=== PATIENT | male | born 1945 | race Caucasian/White ===

== ENCOUNTER 2023-11-21 14:13 | Inpatient (IN) | payer MEDICARE, SELFPAY ==
--- NOTE | ~2023-11-21 | US_ITS ---
EXAMINATION: ARTERIAL DUPLEX, LEFT LEG CLINICAL INFORMATION: Necrotic left great toe wound. COMPARISON: None available. TECHNIQUE: Duplex Doppler techniques with waveform analysis and measurement of velocities in the common femoral, profunda femoris, superficial femoral, popliteal and tibial arteries were performed. FINDINGS: LEFT LOWER EXTREMITY DUPLEX ULTRASOUND: Findings suggest the presence of a synthetic femoral-femoral bypass graft, which appears occluded. Common femoral artery: 20 cm/s. Monophasic. Profunda femoris artery: 26 cm/s. Monophasic. Superficial femoral artery (proximal): No flow visualized. Superficial femoral artery (mid): No flow visualized. Superficial femoral artery (distal): No flow visualized. Popliteal artery: 29 cm/s. Monophasic Posterior tibial artery: 20 cm/s. Monophasic Peroneal artery: 35 cm/s. Monophasic. Dorsalis pedis artery: 20 cm/s. Monophasic. 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 Given monophasic flow within the left common femoral artery, more proximal disease is suspected as well. Electronically signed by: Marcos Vidal MD 11/21/2023 07:44 PM EDT
--- NOTE | ~2023-11-21 | XR_ITS ---
EXAMINATION: XR FOOT, LEFT CLINICAL INFORMATION: Left foot wound, pain and deformity COMPARISON: None available. TECHNIQUE: AP, lateral, and oblique views of the left foot. FINDINGS: Soft tissue ulceration overlying the first toe with osseous destructive changes at the distal tuft of the first distal phalanx. Marked dorsal soft tissue swelling seen of the mid foot. Remaining osseous structures appear intact. XR/XR foot LT min 3V IMPRESSION: Soft tissue ulceration overlying the first toe with osseous destructive changes of the distal tuft of the first distal phalanx consistent with osteomyelitis. Electronically signed by: Aren Tijerina MD 11/21/2023 04:58 PM EDT
--- NOTE | ~2023-11-21 | CT_ITS ---
EXAMINATION: CT ANGIOGRAPHY LEGS WITH RUNOFF CLINICAL INFORMATION: Prior femorofemoral bypass 05/18/2008 which may be occluded. COMPARISON: Arterial ultrasound 11/22/2023. Venous ultrasonography 11/16/2023. TECHNIQUE: IV contrast and CT angiography of the abdomen, pelvis and lower extremities multiple 3-D angiographic reformatted images processed on the technologist work station under concurrent supervision. This CT examination was performed using dose optimization techniques as appropriate, variously including the following: *Automated exposure control *Adjustment of mA and/or kV according to patient size (this includes techniques or standardized protocols for targeted exams where dose is matched to indication/reason for exam; i.e. extremities or head) *Use of iterative reconstruction technique DLP: 1866 mGy-cm Intravenous contrast: Omnipaque 350 100 mL Findings: Vascular: Nonocclusive ostial calcifications are associated with the origin of the celiac axis. Moderate focal stenosis of the origin of the superior mesenteric artery is noted. High-grade focal stenosis is present within the superior mesenteric artery approximately 4 cm distal to the origin of the artery. Scattered calcific plaques are present within the superior mesenteric artery. Single bilateral patent renal arteries are noted with nonocclusive ostial calcifications. Bilaterally symmetric nephrographic enhancement identified. No intraluminal opacification is noted in the infrarenal abdominal aorta. Flow reconstitutes within the leftward external iliac arteries at the level of the left and right inferior epigastric arteries. A femorofemoral bypass graft demonstrates no intraluminal opacification. Right lower extremity: No intraluminal opacification is noted within the right femoral artery. Diminutive intraluminal opacification is noted in the distal popliteal artery with diminutive intraluminal opacification noted within the anterior tibialis, posterior tibialis and fibular arteries. Diminutive three-vessel flow crosses the ankle. Left lower extremity: No intraluminal opacification is noted within the left femoral artery. High-grade segmental stenosis of the superficial femoral arteries noted. Diminutive reconstitution of flow is noted in the distal popliteal artery with diminutive flow noted within the posterior tibialis, anterior tibialis and fibular artery with 3 diminutive three-vessel flow crossing the ankle. CT abdomen and pelvis nonvascular findings: Vague hyperdensity is present within the gallbladder lumen suspicious for cholelithiasis. The liver is not fully included in the image field of view. Normal appearance of the pancreas. The spleen appears atrophic. Normal appearance of the adrenal glands. Bilaterally symmetric nephrographic enhancement. No hydronephrosis, urolithiasis, perinephric inflammatory changes or suspicious parenchymal lesions of the kidneys. Moderate sigmoid diverticulosis is identified. Small cecal bascule is noted. The appendix is not visualized. No free intraperitoneal fluid or gas collections. No intestinal dilatation or mural thickening noted. Moderate fluid distention of the stomach. The stomach is not fully included in the imaged field of view. Subcutaneous emphysema is noted in left lower anterior abdominal wall likely related to subcutaneous injection. No suspicious osseous lesions noted. Lower extremity nonvascular findings: No popliteal fossa fluid collections. Bilateral tibiofibular subcutaneous edema with findings most pronounced on the left. CT/CT angio abd aorta runoff IMPRESSION: Vascular: *Occluded infrarenal abdominal aorta. Occluded iliac system except for reconstitution of the external iliac arteries at the origin of the left and right inferior epigastric arteries. Occluded femorofemoral bypass graft. *Bilateral occlusion of the femoral arteries. Bilateral reconstitution of flow within the distal popliteal arteries with bilateral diminutive 3-vessel flow crossing the ankles. *Marked diffuse calcific atherosclerosis is detailed further above. Findings include focal high-grade stenosis within the proximal superior mesenteric artery. Nonvascular: *Cholelithiasis. *Bilateral lower extremity subcutaneous edema most pronounced on the left. This critical result was discussed with Dr. Nii FERNANDO by telephone at 11/22/2023 11:34 PM EST and it was ascertained that the content and urgency of the report was understood at the time of direct communication. Electronically signed by: Carlos Donald MD 11/22/2023 11:35 PM EDT
--- NOTE | ~2023-11-21 | US_ITS ---
EXAMINATION: US TRIPLEX LOWER EXTREMITY, LEFT CLINICAL INFORMATION: Swelling, erythema COMPARISON: None available. TECHNIQUE: Color-flow triplex imaging with spectral analysis and compression Doppler were performed on the left lower extremity. FINDINGS: Respiratory variation, normal compression and augmented flow are noted throughout the left lower extremity. The visualized common femoral vein, superficial femoral vein, profunda femoral vein, popliteal vein and midcalf peroneal and posterior tibial venous segments show no evidence of deep venous thrombosis. There is no Ross's cyst. US/US venous duplex LE LT IMPRESSION: No evidence of deep venous thrombosis involving the left lower extremity. Electronically signed by: Wai Collado MD 11/21/2023 07:03 PM EDT
--- NOTE | ~2023-11-21 | XR_ITS ---
EXAMINATION: XR FOOT, RIGHT CLINICAL INFORMATION: Right foot redness and swelling COMPARISON: None available. TECHNIQUE: AP, lateral, and oblique views of the right foot. FINDINGS: Marked generalized soft tissue swelling and edema seen. Osseous structures are intact without acute fractures or destructive changes XR/XR foot RT min 3V IMPRESSION: Marked soft tissue swelling. No acute osseous process. Electronically signed by: Aren Tijerina MD 11/21/2023 04:58 PM EDT RP
--- NOTE | ~2023-11-21 | US_ITS ---
EXAMINATION: US NONINVASIVE ASSESSMENT OF THE RIGHT LOWER EXTREMITY WITH ARTERIAL DUPLEX AND ANKLE BRACHIAL INDICES (ABIS) CLINICAL INFORMATION: Clinical right lower extremity. Unable to palpate pedal pulse. COMPARISON: Ultrasound 11/21/2023 TECHNIQUE: Duplex Doppler techniques with waveform analysis and measurement of velocities in the common femoral, profunda femoris, superficial femoral, popliteal and tibial arteries were performed. The study was performed only at rest. FINDINGS: NONINVASIVE ASSESSMENT OF THE ARTERIES OF RIGHT LOWER EXTREMITY: On ultrasound 11/21/2023 there is a femoral-femoral bypass graft which is occluded. RIGHT LOWER EXTREMITY DUPLEX ULTRASOUND: Common femoral artery: 64.8 cm/s. Diastolic flow reversal: Absent More distally within the common femoral artery peak systolic velocity is 18.5 cm/s Profunda femoris artery: 64.7 cm/s. Diastolic flow reversal: Absent The superficial femoral artery and popliteal arteries are occluded. Mid to distal Posterior tibial artery: 3.8-5.2 cm/s Diastolic flow reversal: Absent Peroneal artery: 5.5-10.5 cm/s Diastolic flow reversal: Absent Anterior tibial artery 11 cm/s Diastolic flow reversal: Absent Dorsalis pedis artery: 4 cm/s Diastolic dorsal: Absent US/US arterial duplex LE RT IMPRESSION: There is occlusion of the femoral-femoral bypass and occlusion of the superficial femoral and popliteal arteries with minimal Doppler signal in the runoff vessels There is monophasic flow within the common femoral and profunda femoris arteries which may suggest inflow disease. Findings communicated with LORI Evangelista by Dr. Chirinos by telephone at 1227 hours. Electronically signed by: Marquez Chirinos MD 11/22/2023 12:34 PM EDT
--- NOTE | 2023-11-21 14:19 | ED.SKABFB ---
HPI - Skin/Abscess/Foreign Bdy General Chief complaint: General Medical Stated complaint: infection both feet Time Seen by Provider: 11/21/23 15:26 Source: patient and family Mode of arrival: ambulatory Limitations: no limitations History of Present Illness ED Provider: Dr. Sachin Kimbrough HPI narrative: 78-year-old male history of hypertension but not on medications who presents emergency department for evaluation of swelling and redness of his lower extremities which are chronic but have become worse over the last month and a fall at home son insisted that he come to the hospital to be seen. Patient states that he has been having difficulty walking secondary to the swelling in his legs and over the last month he was only been able to walk about 10 feet in his home. He states that the swelling and redness has been there for a long time but got worse over the last week. He states that the cat scratched his left great toe and part of his toe fell off over the last week. Today he states he lost his balance and fell. He states that he may have hit his head but he had no loss of consciousness. Since the fall he has had no headache, nausea, vomiting or neck pain. He denied fever, chills, chest pain, shortness of breath, diarrhea, dark stools or bloody stools. Related Data Allergies Allergy/AdvReac Type Severity Reaction Status Date / Time No Known Allergies Allergy Mild NONE Verified 11/21/23 14:26 Review of Systems Review of Systems: Yes all other systems are reviewed and are negative [facility] Past Medical History [facility] Narrative: Social history: He lives at home with his son, Ernesto Lieberman who can be reached at . Patient's smokes 1 pack of cigarettes per day times 50 years. He denies alcohol and drug use. He states he was not seen a doctor in many years. Social History Social History Smoked in Last 30 Days: Yes Use of substances other than those prescribed or required for medical reasons: No Advance Directives: No Advance Directives Information Provided: Yes Do you have a plan to hurt others: No Plan Physical Exam Vital Signs: Vital Signs: Last Vital Signs Temp 97.4 F 11/21/23 14:20 Pulse 110 H 11/21/23 15:09 Resp 16 11/21/23 15:09 BP 127/79 11/21/23 14:20 Pulse Ox 96 11/21/23 14:20 O2 Del Method Room Air 11/21/23 14:20 BMI result Body Mass Index 27.2 Vital signs revealed an elevated pulse of 110. Exam: General: Awake, alert in no distress, pleasant and cooperative Head: Normocephalic, atraumatic, no scalp hematomas EENT: PERRL, Lids normal, sclera normal, conjunctiva normal, nose normal , ears normal, throat without erythema or exudates Neck: Supple, no adenopath, no cervical spine tenderness Lung: breath sounds symmetric, no wheezing, rales or rhonchi Chest: symmetric movement, nontender Heart: regular rate and rhythm, normal S1, S2 no murmurs or rubs Abdomen: soft, non-tender, nondistended, normal bowel sounds Back: no vertebral tenderness, no CVAT Extremities: Patient has trace to 1+ pitting edema of his feet ankles and calves which are bilaterally symmetric, there is erythema of the calves extending down to the feet with significant swelling his feet . Patient has a purulent appearing discharge over his left foot with a necrotic appearing left great toe. Neuro: Awake, alert, oriented, normal speech, cranial nerves intact, moves all extremities symmetrically Course Course Course Narrative: This is an RME performed by Yessi Azevedo CNP: Additional HPI, ROS, PE not included below will be deferred to primary provider. Patient is a 78-year-old male who presents emergency department for evaluation concern for infection to the bilateral feet. Per patient's son this has been ongoing for the past 5-6 months patient has declined evaluation . Hasnt seen a doctor in about 4-5 years. Reports no pmhx. Exam: Unkempt, bilateral lower extremity swelling, erythema, wounds. Tachycardic Plan: Serum labs including blood cultures, XR Medications Administered Discontinued Medications Generic Name Dose Route Start Last Admin Trade Name Freq PRN Reason Stop Dose Admin Furosemide 40 mg 11/21/23 15:56 11/21/23 16:14 Furosemide 40 Mg/4 Ml Vial IVPUSH 11/21/23 15:57 40 mg ONCE ONE Administration Protocol Piperacillin Sod/Tazobactam 100 mls @ 200 mls/hr 11/21/23 15:56 11/21/23 16:15 Sod 4.5 gm/ Sodium Chloride IV 11/21/23 16:25 200 mls/hr ONCE ONE Administration Medical Decision Making Medical Decision Making [facility] Narrative: 78-year-old male history of hypertension but not on medications who presents emergency department for evaluation of swelling and redness of his lower extremities which are chronic but have become worse over the last month and a fall at home today after which has son insisted that he come to the hospital to be seen. Patient states that he has been having difficulty walking secondary to the swelling in his legs and over the last month. He was only been able to walk about 10 feet in his home. Son states that he has chronic redness and swelling of his legs but this is worse over the last week and the patient's left great toe has become black and necrotic. He also has developed a purulent discharge from the left foot. Vital signs did reveal elevated heart rate otherwise unremarkable. Physical examination is concerning for bilateral cellulitis of the lower extremities worse on the left foot compared to the right foot with a necrotic left great toe. 16:14 Differential diagnosis: ?Includes but is not limited to cellulitis, osteomyelitis, necrotic left great toe, peripheral edema, anemia, electrolyte abnormalities Course: 16:14 My interpretation patient's laboratory evaluation is as follows: [place] [address]. Glucose elevated 140 7. Lactic acid elevated 2.5. BNP elevated 254. The x-rays of the left and right foot were interpreted by me as follows: Osteomyelitis of the left great toe and possible osteomyelitis of the left 5th toe. Right foot revealed no signs of osteomyelitis Patient was treated with vancomycin 2 g IV and Zosyn 4.5 g IV. Given his significant peripheral edema felt that he would also benefit from Lasix 40 mg IV. The patient's elevated lactic acid is more likely caused by the necrosis of the left great toe and not secondary to sepsis. Admission/Observation Consideration of admission/observation: Escalation of care including admission/observation considered (Yes) Consult Healthcare Provider Management of the patient was discussed with: Hospitalist (Dr. Reynoso) Lab Data [facility] Lab Attestation statement: I reviewed the patient's lab results. 11/21/23 14:41 11/21/23 14:41 Labs: Lab Results 11/21/23 Range/Units 14:41 WBC 13.2 H (4.8-10.8) X10*3/uL RBC 4.68 (4.60-5.80) X10*6/uL Hgb 14.3 (14.0-18.0) g/dl Hct 42.3 (42.0-52.0) % MCV 90.4 (80.0-98.0) fL MCH 30.6 (27.0-33.0) pg MCHC 33.8 (31.0-36.0) g/dl RDW 14.4 (11.0-16.0) % Plt Count 258 (160-400) X10*3/uL MPV 9.0 L (9.4-12.4) fL Immature Gran % (Auto) 0.3 (0.0-0.4) % Neut % (Auto) 87.6 H (45-73) % Lymph % (Auto) 6.1 L (20-40) % [place] % (Auto) 5.4 (2-11) % Eos % (Auto) 0.4 (0-4) % Baso % (Auto) 0.2 (0-2) % Lymph # (Auto) 0.8 L (1.2-4.9) X10*3/uL [place] # (Auto) 0.7 (0.1-1.2) X10*3/uL Eos # (Auto) 0.1 (0.0-0.4) X10*3/uL Baso # (Auto) 0.0 (0.0-0.2) X10*3/uL Abs Immat Gran (auto) 0.04 H (0.00-0.03) X10*3/uL Absolute Neuts (auto) 11.6 H (2.0-8.3) x10*3/uL Absolute Nucleated RBC 0.000 (0.0-0.012) X10*3/uL Nucleated RBC % (auto) 0.0 (0.0-0.2) /100WBC Sodium 140 (135-145) mmol/L Potassium 3.7 (3.3-5.1) mmol/L Chloride 100 (96-108) mmol/L Carbon Dioxide 26 (22-29) mmol/L Anion Gap 18 (12-20) BUN 15 (9-16) mg/dL Creatinine 0.81 (0.5-1.4) mg/dL Estim Creat Clear Calc 80.0 Estimated GFR > 60 Random Glucose 125 H (60-115) mg/dL Lactic Acid 2.5 H* (0.5-2.0) mmol/L Calcium 10.1 (8.4-10.2) mg/dL Total Bilirubin 0.8 (0.0-1.0) mg/dL AST 17 (5-37) U/L ALT 13 (0-40) U/L Alkaline Phosphatase 75 (39-117) U/L B-Natriuretic Peptide 254 H (<100) pg/mL Total Protein 7.6 (6.5-8.0) g/dL Albumin 3.9 (3.5-5.0) g/dL Independent Interpretation I performed an independent interpretation of an: Plain X-Ray Interpretation: My independent interpretation of the patient's x-rays of his bilateral feet is as follows: Osteomyelitis of the left great toe and possible osteomyelitis of the left 5th toe Independent Historian Clinical information obtained from an independent historian. History obtained from or confirmed by: Other (Son) Discharge Plan Discharge Clinical Impression: Bilateral cellulitis of lower leg, Osteomyelitis of great toe of left foot, Edema, peripheral Patient Disposition: Admitted As Inpatient Print Language: Maltese
[2023-11-21 14:20] VITALS: BP 127/79; PULSE 114; RESP 18; TEMP 36.3; O2SAT 96; BMI 27.2
--- NOTE | 2023-11-21 14:26 | ECG_ITS ---
Test Reason : TACHYCARDIA Blood Pressure : / mmHG Vent. Rate : 110 BPM Atrial Rate : 110 BPM P-R Int : 140 ms QRS Dur : 112 ms QT Int : 366 ms P-R-T Axes : 041 026 109 degrees QTc Int : 495 ms Sinus tachycardia Possible Left atrial enlargement Left ventricular hypertrophy with repolarization abnormality ( Sokolow-Fisher , Jj product ) Abnormal ECG When compared with ECG of 14-MAR-2008 12:43, Vent. rate has increased BY [address] now depressed in Lateral leads T wave inversion now evident in Lateral leads Referred By: Charlotte Azevedo Electronically Signed By:JOHN CRUMP
[2023-11-21 14:49] LABS: MANUAL DIFF FLAG NO
[2023-11-21 14:53] LABS: Basophils Percent Auto 0.2 % (0-2); Eosinophils Absolute Auto 0.1 X10*3/uL (0.0-0.4); Eosinophils Percent Auto 0.4 % (0-4); Hematocrit 42.3 % (42.0-52.0); Hemoglobin 14.3 g/dl (14.0-18.0); Imm Gran Abs Auto 0.04 X10*3/uL (0.00-0.03); Imm Gran Pct Auto 0.3 % (0.0-0.4); Lymphocytes Absolute Auto 0.8 X10*3/uL (1.2-4.9); Lymphocytes Percent Auto 6.1 % (20-40); Mean Corpuscular HGB Conc 33.8 g/dl (31.0-36.0); Mean Corpuscular Hemoglobin 30.6 pg (27.0-33.0); Mean Corpuscular Volume 90.4 fL (80.0-98.0); Monocytes Absolute Auto 0.7 X10*3/uL (0.1-1.2); Monocytes Percent Auto 5.4 % (2-11); Neutrophils Absolute Auto 11.6 x10*3/uL (2.0-8.3); Neutrophils Percent Auto 87.6 % (45-73); Platelet Count 258 X10*3/uL (160-400); Red Blood Count 4.68 X10*6/uL (4.60-5.80); Red Cell Distribution Width 14.4 % (11.0-16.0); White Blood Count 13.2 X10*3/uL (4.8-10.8)
[2023-11-21 15:04] LABS: Alanine Aminotransferase 13 U/L (0-40); Albumin Level 3.9 g/dL (3.5-5.0); Alkaline Phosphatase 75 U/L (39-117); Anion Gap 18 (12-20); Aspartate Amino Transferase 17 U/L (5-37); Bilirubin Total 0.8 mg/dL (0.0-1.0); Blood Urea Nitrogen 15 mg/dL (9-16); Calcium 10.1 mg/dL (8.4-10.2); Carbon Dioxide 26 mmol/L (22-29); Chloride 100 mmol/L (96-108); Estimated Glomerular Filt Rate > 60; Glucose Random 125 mg/dL (60-115); Potassium 3.7 mmol/L (3.3-5.1); Sodium 140 mmol/L (135-145); Total Protein 7.6 g/dL (6.5-8.0)
[2023-11-21 15:09] VITALS: PULSE 110; RESP 16
[2023-11-21 15:10] LABS: B Type Natriuretic Peptide 254 pg/mL (<100)
[2023-11-21 15:26] LABS: Lactic Acid 2.5 mmol/L (0.5-2.0)
--- NOTE | 2023-11-21 15:32 | PC.NURSE ---
pt from home, his son brought him in after a fall this morning r/t his foot infection. the pt states this has only been there for a month. pts son reports it has been an ongoing problem for 3-4 months but that the pt has refused to get care. according to the son, his father went down hill after covid and stopped taking care of himself, stopped showering, stopped going to the doctor. according to the son he has been trying to get his father to the doctor for months but, his father refuses. pt is an alert and oriented x4 78 y.o male.
--- NOTE | 2023-11-21 15:35 | HO.SKINPHOTO ---
Location: MARELY feet Category: Stage: Length: Width: Depth: cm Location: left foot Category: Stage: Length: Width: Depth: cm Location: right foot Category: Stage: Length: Width: Depth: cm Location: right foot Category: Stage: Length: Width: Depth: cm Location: left foot Category: Stage: Length: Width: Depth: cm Location: Category: Stage: Length: Width: Depth: cm
[2023-11-21] MEDS: Furosemide 40 MG/4 ML VIAL IVPUSH (16:14)
[2023-11-21] MEDS: Piperacillin Sodium/Tazobactam 4.5 GM in 0.9 % Sodium Chloride 100 ML IV ×2 (16:15→22:13)
--- NOTE | 2023-11-21 16:33 | PM.IMHP ---
History of Present Illness Date of Service: 11/21/23 Attending physician on admission: Ally Reynoso Chief Complaint: fall 78 year old male with history of htn not on medications who is a current 1ppd smoker (30+ pack year history) presented to the ED earlier today at the recommendation of his son due to redness and swelling of the bilateral feet. He has had redness and swelling of the BLE that is chronic L>R, but has worsened over the last month, particularly over the last week. He states he has sensation in his feet but due to the swelling and discomfort he has been having difficulty ambulating more than 10 feet at a time. He did have a fall at home and possibly hit his head but no LOC, not on thinners. He reports the cat scratched the outside of the L great toe and subseqeuntly part of the toe fell off over the last week. No fevers, chills, abd pain, n/v/d, neck pain, headache, paresthesias, lightheadedness, palpitations, sob, or chest pain. He is generally unkempt and is unable to tell me exactly how long his feet have been like this, gives history based on what his son reported. Since arrival afebrile but tachycardic to 110. Has a leukocytosis of 13.5. Renal function and lytes wnl. CRP 13, ESR pending. Lactic acid 2.5. BNP 254. X-ray of the left foot shows soft tissue ulceration overlying the 1st toe with osseous destructive changes of the distal tuft of the 1st distal phalanx consistent with osteomyelitis. X-ray of the right foot shows marked soft tissue swelling without any acute osseous process. In the ED has received zosyn and vanco. Review of Systems Review of Systems: Yes all other systems are reviewed and are negative [facility] Medical History (Updated 11/21/23 @ 17:08 by LORI Evangelista) Cigarette smoker HTN (hypertension) Social History Patient Tobacco Use Status: Current everyday Tobacco user Meds Allergies Allergy/AdvReac Type Severity Reaction Status Date / Time No Known Allergies Allergy Mild NONE Verified 11/21/23 14:26 Active Medications: Current Medications Vancomycin HCl (Vancomycin/Ns) 2,000 mg in 500 mls @ 250 mls/hr IV ONCE ONE Stop: 11/21/23 17:55 Home Medications ?Medication ?Instructions ?Recorded ?Confirmed ?Last Taken ?Type aspirin 81 mg tablet,delayed 81 mg PO DAILY 11/21/23 11/21/23 11/20/23 History release Physical Exam Vital Signs and Narrative: Vital Signs: Last Vital Signs Temp 97.4 F 11/21/23 14:20 Pulse 110 H 11/21/23 15:09 Resp 16 11/21/23 15:09 BP 127/79 11/21/23 14:20 Pulse Ox 96 11/21/23 14:20 O2 Del Method Room Air 11/21/23 14:20 BMI result Body Mass Index 27.2 Constitutional - Awake and Alert, unkempt appearing, No apparent distress Eyes - PERRLA, EOMI Cardiovascular - S1S2, RRR, No edema Respiratory - Normal lung expansion, Normal respiratory effort, No respiratory distress, CTA bilaterally Gastrointestinal - NT / ND; +BS; No rebound or guarding Extremities - L calf tenderness with swelling compared to R Skin - Warm/Dry. Dry, scaling skin of the BLE with erythema and slight warmth L>R. L great toe heavily calloused with distal tip missing and evidence of necrosis. There is what some purulent drainage to the dorsum of the L foot. Significantly overgrown toenails Neurological - Alert & oriented x3 Results Labs 11/21/23 14:41 11/21/23 14:41 Labs: Laboratory Results - last 24 hr 11/21/23 14:41 MCV 90.4 MCH 30.6 MCHC 33.8 RDW 14.4 Plt Count 258 MPV 9.0 L Immature Gran % (Auto) 0.3 Neut % (Auto) 87.6 H Lymph % (Auto) 6.1 L [place] % (Auto) 5.4 Eos % (Auto) 0.4 Baso % (Auto) 0.2 Lymph # (Auto) 0.8 L [place] # (Auto) 0.7 Eos # (Auto) 0.1 Baso # (Auto) 0.0 Abs Immat Gran (auto) 0.04 H Absolute Neuts (auto) 11.6 H Absolute Nucleated RBC 0.000 Nucleated RBC % (auto) 0.0 Anion Gap 18 Estim Creat Clear Calc 80.0 Estimated GFR > 60 Random Glucose 125 H Lactic Acid 2.5 H* Calcium 10.1 Total Bilirubin 0.8 AST 17 ALT 13 Alkaline Phosphatase 75 B-Natriuretic Peptide 254 H Total Protein 7.6 Albumin 3.9 Assessment and Plan (1) Bilateral cellulitis of lower leg: Status: Acute (2) Edema, peripheral: Status: Acute (3) Osteomyelitis of great toe of left foot: Status: Acute Plan 78 year old male with history of htn not on medications who is a current 1ppd smoker (30+ pack year history) admitted for acute osteomyelitis L great toe and ble cellulitis #Acute osteomyelitis L great toe and BLE cellulitis with sepsis -WBC 13.5, tachycardic. Lactic acidosis due to necrosis of the L great toe, not severe sepsis. No end organ damage. No severe sepsis/shock on admission -XR L great toe with evidence of osteomyelitis -CRP 13, ESR pending -IV vanco and zosyn (initiated 9.29) -Arterial doppler LLE -ID consult, vascular surgery consult -pain management prn -wound culture pending -Follow cbc, cultures -asa on hold in case of amputation #BLE edema -venous duplex pending LLE -given 40mg IV lasix in ed. Not in acute CHF -monitor #HTN -blood pressures controlled in the ED -monitor, not on home meds #Cigarette smoker -declines NRT, reports 1PPD last 20 years had quit for 20 years prior to this, but at least 30+ pack year history DVT prophylaxis- lovenox full code pt requires inpt stay at least 2 midnights for management of acute osteomyelitis and cellulitis with sepsis requiring iv abx, expert consultation and possible amputation +/- extermination inspector abx and final cultures Quality Stroke Does the patient have a stroke diagnosis?: No VTE Prior VTE?: No VTE Risk Level:: Medical - moderate - high VTE Device Contraindication: Treatment Not Indicated VTE Drug Contraindication: N/A - Med Ordered
[2023-11-21 16:47] LABS: Reflex Lactate? Lactic Acid Added
[2023-11-21 16:50] LABS: C Reactive Protein 13.07 mg/dL (< or = 0.50)
[2023-11-21] MEDS: vancomycin/NS 2,000 MG/500 ML PLAST..BAG 250 MG IV (17:13)
[2023-11-21 17:24] LABS: Erythrocyte Sedimentation Rate 51 MM/HR (0-15)
[2023-11-21 17:33] LABS: Estimated Average Glucose 111 mg/dL; Hemoglobin A1C 128.6327 umol/L; Hemoglobin A1c % 5.5 % (<6.0); Total Hemoglobin (HGBA1C) 3517.0852 umol/L
--- NOTE | 2023-11-21 17:38 | PHA.PROG ---
Admission Date/Time: November 21, 2023 16:52 Indication: bone and joint Weight in k.451 kg Adjusted body weight in Kg: [place] body weight in Kg: Obesity Dosing Indication % IBW: Serum Creatinine - Last 168 Hours 11/21/23 14:41 Creatinine 0.81 Estimated CrCl and GFR - Last 168 Hours 11/21/23 14:41 Estim Creat Clear Calc 80.0 Estimated GFR > 60 Vancomycin Loading Dose: 2000mg x 1 Current Vancomycin Dosing Regimen: 1000mg Q12H Vancomycin Monitoring using AUC goal of 400 - 600 range with trough as surrogate marker: 536mg/L Date and Time for next Vancomycin Level to be drawn: 11/21 @1500 Pharmacist Comments on Vancomycin Plan: Predicted trough of 17.6mg/L; getting level after two doses daphnie to timing of medication. Will adjust as necessary Vancomycin dosing will take advantage of [employer] as a clinical decision support tool that uses Bayesian modeling to calculate individual patient's pharmacokinetic parameters and forecast the patient's drug concentration time course with the target goal AUC 24 range of 400 - 600 mg/L/hr.
--- NOTE | 2023-11-21 17:54 | PHA.MEDREC ---
Pharmacy Consult ? Medication Reconciliation Pharmacy has completed the medication reconciliation.
[2023-11-21] MEDS: Enoxaparin Sodium 40 MG/0.4 ML SYRINGE SUBCUT (18:53)
[2023-11-21 20:00] VITALS: BP 109/63; PULSE 109; RESP 19; TEMP 36.6; O2SAT 96
--- NOTE | 2023-11-21 20:08 | MHC.EDTECH ---
Addendum entered by Mercedes Corona 11/21/23 20:09: patient drank 240MLS of fluids Original Note: This tech took over care of patient at 1900,rounds and vitals completed,patient ate 100% of dinner and drank 234patient repositioned to comfort,call jacobs in reach
--- NOTE | 2023-11-21 21:55 | MHC.EDTECH ---
Hourly rounds completed,emptied 600MLS of yellow urine from urinal,patient is [id number] comfortably,call jacobs in reach
[2023-11-21] MEDS: Acetaminophen 325 MG TABLET 650 MG PO (22:15)
[2023-11-21] MEDS: 0.9 % Sodium Chloride Flush 3 ML SYRINGE IVFLUSH (23:59)
[2023-11-22] VITALS (11 sets, daily range): BP systolic 99–189; BP diastolic 62–90; PULSE 81–101; RESP 12–20; TEMP 36–36.8; O2SAT 95–98; BMI 24.0
--- NOTE | 2023-11-22 00:09 | MHC.EDTECH ---
Hourly rounds and vitals completed,pillow placed under patients feet to provide comfort,call jacobs in reach
--- NOTE | 2023-11-22 01:59 | MHC.EDTECH ---
This tech offered patient at hospital bed,pt refused, rounds and vitals completed,call jacobs in reach
[2023-11-22] MEDS: Piperacillin Sodium/Tazobactam 4.5 GM in 0.9 % Sodium Chloride 100 ML IV ×4 (04:55→20:46)
[2023-11-22 05:24] LABS: MANUAL DIFF FLAG NO
[2023-11-22 05:28] LABS: Basophils Percent Auto 0.4 % (0-2); Eosinophils Absolute Auto 0.1 X10*3/uL (0.0-0.4); Eosinophils Percent Auto 1.3 % (0-4); Hemoglobin 13.1 g/dl (14.0-18.0); Imm Gran Abs Auto 0.04 X10*3/uL (0.00-0.03); Imm Gran Pct Auto 0.4 % (0.0-0.4); Lymphocytes Absolute Auto 1.4 X10*3/uL (1.2-4.9); Lymphocytes Percent Auto 13.7 % (20-40); Mean Corpuscular HGB Conc 33.6 g/dl (31.0-36.0); Mean Corpuscular Hemoglobin 30.1 pg (27.0-33.0); Mean Corpuscular Volume 89.7 fL (80.0-98.0); Mean Platelet Volume 9.1 fL (9.4-12.4); Monocytes Percent Auto 9.2 % (2-11); Neutrophils Absolute Auto 7.9 x10*3/uL (2.0-8.3); Platelet Count 215 X10*3/uL (160-400); Red Blood Count 4.35 X10*6/uL (4.60-5.80); Red Cell Distribution Width 14.1 % (11.0-16.0); White Blood Count 10.5 X10*3/uL (4.8-10.8)
[2023-11-22] MEDS: vancomycin HCL 1,000 MG in 0.9 % Sodium Chloride 250 ML 270 MG IV ×2 (05:40→16:42)
[2023-11-22 05:46] LABS: Anion Gap 15 (12-20); Blood Urea Nitrogen 19 mg/dL (9-16); Calcium 9.1 mg/dL (8.4-10.2); Carbon Dioxide 28 mmol/L (22-29); Chloride 102 mmol/L (96-108); Creatinine Clr Calc Pharmacy 68.9; Estimated Glomerular Filt Rate > 60; Glucose Random 109 mg/dL (60-115); Potassium 3.1 mmol/L (3.3-5.1); Sodium 142 mmol/L (135-145)
[2023-11-22] MEDS: 0.9 % Sodium Chloride Flush 3 ML SYRINGE IVFLUSH ×3 (07:46→20:45)
--- NOTE | 2023-11-22 07:46 | HO.PM.IMPN ---
Subjective Subjective Date of Service: 11/22/23 Interval History: Seen in follow-up for osteomyelitis left great toe, peripheral vascular disease Interval history: Continues with discomfort of the left foot as well as swelling. Vitals stable. Leukocytosis trending down. Has no other complaints at this time Review of Systems Review of Systems: Yes all other systems are reviewed and are negative Physical Exam Vital Signs: Vital Signs: Last Vital Signs Temp 96.8 F 11/22/23 06:05 Pulse 86 11/22/23 06:05 Resp 18 11/22/23 06:05 BP 151/84 H 11/22/23 06:05 Pulse Ox 96 11/22/23 06:05 O2 Del Method Room Air 11/22/23 06:05 BMI result Body Mass Index 24.0 Constitutional - Awake and Alert, unkempt appearing, No apparent distress Eyes - PERRLA, EOMI Cardiovascular - S1S2, RRR, No edema Respiratory - Normal lung expansion, Normal respiratory effort, No respiratory distress, CTA bilaterally Gastrointestinal - NT / ND; +BS; No rebound or guarding Extremities - L calf tenderness with swelling compared to R Skin - Warm/Dry. Dry, scaling skin of the BLE with erythema and slight warmth L>R. L great toe heavily calloused with distal tip missing and evidence of necrosis. There is what some purulent drainage to the dorsum of the L foot. Significantly overgrown toenails. Appearance unchanged from last night. See photos in H&P Neurological - Alert & oriented x3 Objective Data Active Medications Acetaminophen (Acetaminophen 325 Mg Tablet) 650 mg PO Q6H PRN PRN Reason: Pain, Mild (Pain Scale 1-3), fever or headache Last Admin: 11/21/23 22:15 Dose: 650 mg Documented By: BRENDEN Calcium Carbonate (Calcium Carbonate 750 Mg Tab.Chew) 750 mg PO Q4H PRN PRN Reason: Heartburn Enoxaparin Sodium (Enoxaparin Sodium 40 Mg/0.4 Ml Syringe) 40 mg SUBCUT Q24H [facility] Last Admin: 11/21/23 18:53 Dose: 40 mg Documented By: CASA Piperacillin Sod/Tazobactam (Sod 4.5 gm/ Sodium Chloride) 100 mls @ 200 mls/hr IV Q6H [facility] Last Infusion: 11/22/23 05:40 Dose: Infused Documented By: BRENDEN Vancomycin HCl 1,000 mg/ (Sodium Chloride) 270 mls @ 270 mls/hr IV Q12H [facility] Last Infusion: 11/22/23 06:40 Dose: Infused Documented By: AMOL Magnesium Hydroxide (Milk Of Magnesia 30 Ml Oral.Susp) 30 ml PO DAILY PRN PRN Reason: Constipation Melatonin (Melatonin 3 Mg Tablet) 6 mg PO BEDTIME PRN PRN Reason: Insomnia Morphine Sulfate (Morphine Sulfate 2 Mg/Ml Cartridge) 2 mg IVPUSH Q4H PRN; Protocol PRN Reason: Pain, Severe (Pain Scale 7-10) Oxycodone HCl (Oxycodone Hcl Immed Release 5 Mg Tablet) 5 mg PO Q6H PRN PRN Reason: Pain, Moderate(Pain Scale 4-6) Pharmacy Consult (Consult Rx Vancomycin Dosing) 1 each MISCELLANE DAILY PRN PRN Reason: Consult order Sodium Chloride (0.9 % Sodium Chloride Flush 3 Ml Syringe) 3 ml IVFLUSH QSHIFT [facility] Last Admin: 11/21/23 23:59 Dose: 3 ml Documented By: BRENDEN Labs 11/22/23 04:58 11/22/23 04:58 Labs: Laboratory Results - last 24 hr 11/21/23 11/21/23 11/22/23 14:41 17:14 04:58 MCV 90.4 89.7 MCH 30.6 30.1 MCHC 33.8 33.6 RDW 14.4 14.1 Plt Count 258 215 MPV 9.0 L 9.1 L Immature Gran % (Auto) 0.3 0.4 Neut % (Auto) 87.6 H 75.0 H Lymph % (Auto) 6.1 L 13.7 L [place]ee % (Auto) 5.4 9.2 Eos % (Auto) 0.4 1.3 Baso % (Auto) 0.2 0.4 Lymph # (Auto) 0.8 L 1.4 [place] # (Auto) 0.7 1.0 Eos # (Auto) 0.1 0.1 Baso # (Auto) 0.0 0.0 Abs Immat Gran (auto) 0.04 H 0.04 H Absolute Neuts (auto) 11.6 H 7.9 Absolute Nucleated RBC 0.000 0.000 Nucleated RBC % (auto) 0.0 0.0 ESR 51 H Anion Gap 18 15 Estim Creat Clear Calc 80.0 68.9 Estimated GFR > 60 > 60 Random Glucose 125 H 109 Estimat Average Glucose 111 Hemoglobin A1c % 5.5 Lactic Acid 2.5 H* Lactic Acid F/U @ 2Hr 2.0 Calcium 10.1 9.1 D Total Bilirubin 0.8 AST 17 ALT 13 Alkaline Phosphatase 75 C-Reactive Protein 13.07 H B-Natriuretic Peptide 254 H Total Protein 7.6 Albumin 3.9 Assessment and Plan (1) Lymphedema: Status: Acute (2) PAD (peripheral artery disease): Status: Acute (3) Osteomyelitis of great toe of left foot: Status: Acute Plan 78 year old male with history of htn not on medications who is a current 1ppd smoker (30+ pack year history) admitted for acute osteomyelitis L great toe and ble cellulitis #Acute osteomyelitis L great toe and BLE cellulitis with sepsis -WBC 13.5--> trending down, tachycardic. Lactic acidosis due to necrosis of the L great toe, not severe sepsis. No end organ damage. No severe sepsis/shock on admission -XR L great toe with evidence of osteomyelitis -CRP 13, ESR 51 -IV vanco and zosyn (initiated 9.29) -Arterial doppler BLE show occulsion of the fem-fembypass graft (2008-Dr Delarosa) with severe PAD> CTA aorta ordered by vasular surgery -resume aspirin -pain management prn -wound culture pending. G stain negative -Follow cbc, cultures -ID and vascular surgery input appreciated -PT eval #PAD -Arterial doppler BLE show occulsion of the fem-fembypass graft (2008-Dr Delarosa) with severe PAD> CTA aorta ordered by vasular surgery -CTA aorta w runoff per vascular surgery pending -vascular surgery input appreciated -resume asa #BLE edema- seems consistent with lymphedema -venous duplex negative for DVT -given 40mg IV lasix in ed. Not in acute CHF. Continue 40 mg p.o. Lasix -vascular surgery consult -monitor # acute hypokalemia -likely related to Lasix. Give 40 mEq p.o. potassium chloride -follow lytes #HTN -add amlodipine 5 mg daily #Cigarette smoker -declines NRT, reports 1PPD last 20 years had quit for 20 years prior to this, but at least 30+ pack year history #Acute normocytic anemia -above transfusion threshold, likely related to acute illness DVT prophylaxis- lovenox full code Patient requires ongoing inpatient stay due to acute osteomyelitis of the left great toe with cellulitis and sepsis requiring IV antibiotics, expert consultation, final cultures and probable long-term antibiotics with anticipated discharge to short-term rehab Quality Stroke Does the patient have a stroke diagnosis?: No VTE Prior VTE?: No VTE Risk Level:: Medical - moderate - high VTE Device Contraindication: Treatment Not Indicated VTE Drug Contraindication: N/A - Med Ordered
--- NOTE | 2023-11-22 11:31 | PC.NURSE ---
Pt is a high fall risk due to recent falls at home, Pt refusing bed alarm, Pt to use call jacobs for assistance with getting oob.
--- NOTE | 2023-11-22 11:34 | MHC.CLN ---
NUTRITION CONSULT FOR DECREASED PO INTAKE. ED DOC SHOWS 1 MEAL X 100%. DIET=2 GRAM SODIUM. ADDING ENSURE BID TO IMPROVE NUTRITIONAL INTAKE. SUPPLEMENT PROVIDES 700 KCALS, 40 G PROTEIN. FOLLOW UP FOR PO INTAKE WITHIN 1 WEEK.
--- NOTE | 2023-11-22 11:50 | MHC.CM.PN ---
IMM DELIVERED. PATIENT LIVES IN A HOME W/ ADULT SON. REPORTS HE COMPLETES MOST ADL'S INDEPENDENTLY, BUT SOMETIMES DOESN'T FEEL WELL ENOUGH TO DRESS/BATHE AND WAITS UNTIL HE FEELS BETTER TO COMPLETE. FEELS HE COULD BENEFIT FROM A [facility]. [facility] REFERRAL IN PLACE. NO MEDICAL EQUIPMENT, NO HOME SERVICES. REPORTS PCP IS DR. ISRA DO, BUT THINKS IT'S BEEN YEARS SINCE LAST APPT. ONLY INSURANCE AT THIS TIME IS MEDICARE PART A. PATIENT FEELS HE WILL QUALIFY FOR [facility] [employer]. REFERRAL TO FINANCIAL SERVICES. DP: AWAITING VASCULAR CONSULT. MULTIPLE FALLS AT HOME, WILL ALSO NEED PT EVAL. ANTICIPATE STR. PATIENT IS AGREEABLE AND ACCEPTS A BED AT [facility]. BLS TRANSPORT. CM WILL CONTINUE TO FOLLOW.
--- NOTE | 2023-11-22 13:06 | P.CONGS_ITS ---
History of Present Illness Consult details Consult date: 11/22/23 Reason for consult: wound care Narrative: Very complex 78-year-old gentleman presents for evaluation of nonhealing left lower extremity ulcers. He has a known history of peripheral vascular disease and back in April of 2008 he had a fem-fem bypass by Dr. Delarosa. He currently smokes about a pack to 2 packs per day. He reports that he has had this swelling and discomfort of his left foot and presented to the emergency room. He now presents to us for vascular evaluation. Review of Systems 2 Review of Systems: Yes all other systems are reviewed and are negative Constitutional: Constitutional: Reports no additional constitutional complaints ENT: Reports Normal hearing present Cardiovascular: Cardiovascular: Denies chest pain, Denies chest pain at rest, Denies chest pain with activity and Denies pedal edema Respiratory: Respiratory: Denies cough Gastrointestinal: Gastrointestinal: Denies abdominal pain Musculoskeletal: Musculoskeletal: Denies abnormal gait, Denies muscle cramps and Denies radiating pain into limb Integumentary/Breasts: Skin/Breast: Denies skin ulcer and Denies wounds Neurologic: Reports Normal hearing present and Denies abnormal gait Psychiatric: Psychiatric: Reports no additional psychiatric complaints FOR[facility]LY [facility], [facility] Past Medical History Medical History (Updated 11/22/23 @ 13:09 by Joel Kennedy MD) Cigarette smoker HTN (hypertension) Social History Social History Household Members: Family Housing: House Do you presently have visiting nurse or other home services: No Patient Tobacco Use Status: Current everyday Tobacco user Tobacco use type: Cigarette Cigarettes Per Day: 20 Years Smoked: 50 Smoked in Last 30 Days: Yes e-Cigarette/Vaping Use: Currently Using Patient Interested in Nicotine Replacement: No Use of substances other than those prescribed or required for medical reasons: No Currently Displaying Signs/Symptoms of Drug Intoxication Withdrawal: No Have you been hit, kicked, punched, or otherwise hurt by someone within the past year? If so, by whom?: No Do you feel safe in your current relationship?: No Is there a partner from a previous relationship who is making you feel unsafe now?: No Are you made to feel afraid or neglected: No Advance Directives: No Advance Directives Information Provided: Yes Do you have a plan to hurt others: No Plan Recently lost weight without trying: Unsure Nutrition Risks: Poor intake 0-25% >4 days Poor oral hygiene: Yes service: No Meds Allergies Allergy/AdvReac Type Severity Reaction Status Date / Time No Known Allergies Allergy Mild NONE Verified 11/21/23 14:26 Active Medications: Current Medications Acetaminophen (Acetaminophen 325 Mg Tablet) 650 mg PO Q6H PRN PRN Reason: Pain, Mild (Pain Scale 1-3), fever or headache Last Admin: 11/21/23 22:15 Dose: 650 mg Calcium Carbonate (Calcium Carbonate 750 Mg Tab.Chew) 750 mg PO Q4H PRN PRN Reason: Heartburn Enoxaparin Sodium (Enoxaparin Sodium 40 Mg/0.4 Ml Syringe) 40 mg SUBCUT Q24H [facility] Last Admin: 11/21/23 18:53 Dose: 40 mg Piperacillin Sod/Tazobactam (Sod 4.5 gm/ Sodium Chloride) 100 mls @ 200 mls/hr IV Q6H [facility] Last Infusion: 11/22/23 11:16 Dose: Infused Vancomycin HCl 1,000 mg/ (Sodium Chloride) 270 mls @ 270 mls/hr IV Q12H [facility] Last Infusion: 11/22/23 06:40 Dose: Infused Magnesium Hydroxide (Milk Of Magnesia 30 Ml Oral.Susp) 30 ml PO DAILY PRN PRN Reason: Constipation Melatonin (Melatonin 3 Mg Tablet) 6 mg PO BEDTIME PRN PRN Reason: Insomnia Morphine Sulfate (Morphine Sulfate 2 Mg/Ml Cartridge) 2 mg IVPUSH Q4H PRN; Protocol PRN Reason: Pain, Severe (Pain Scale 7-10) Oxycodone HCl (Oxycodone Hcl Immed Release 5 Mg Tablet) 5 mg PO Q6H PRN PRN Reason: Pain, Moderate(Pain Scale 4-6) Pharmacy Consult (Consult Rx Vancomycin Dosing) 1 each MISCELLANE DAILY PRN PRN Reason: Consult order Sodium Chloride (0.9 % Sodium Chloride Flush 3 Ml Syringe) 3 ml IVFLUSH QSHIFT [facility] Last Admin: 11/22/23 07:46 Dose: 3 ml Home Medications ?Medication ?Instructions ?Recorded ?Confirmed ?Last Taken ?Type aspirin 81 mg tablet,delayed 81 mg PO DAILY 11/21/23 11/21/23 11/20/23 History release Physical Exam 2 Vital Signs: Vital Signs: Last Vital Signs Temp 97.2 F 11/22/23 12:00 Pulse 100 11/22/23 12:00 Resp 12 11/22/23 12:00 BP 143/70 H 11/22/23 12:00 Pulse Ox 96 11/22/23 12:00 O2 Del Method Room Air 11/22/23 12:00 BMI result Body Mass Index 24.0 Const: General: cooperative, healthy appearing and comfortable O rientation/consciousness: oriented to person, oriented to place and oriented to time HEENT: Head: Yes normal to inspection Neck: Neck: Yes normal visual inspection Carotids: no bruits Chest: Chest palpation & inspection: normal inspection of the chest Resp: Effort & Inspection: normal respiratory effort and able to speak in complete sentences Auscultation: clear to auscultation bilaterally, no crackles, no rales, no rhonchi and no wheezes Cardio: Other: Bilateral DP signals Rate: regular rate Rhythm: regular rhythm Heart sounds: S1 normal heart sound present and S2 normal heart sound present Bruits: no carotid bruits GI: Inspection: Yes normal to inspection Skin: Other: Left dorsum of the foot nonhealing ulcer Bilateral skin color discoloration +2 to +3 edema bilateral lower extremity Wounds: no wounds Hair: normal Neuro: General: oriented to person, oriented to place and oriented to time Cranial nerves: Yes CN's II-XII intact bilaterally and Yes Normal hearing present Cognition (Neuro): normal cognition Motor exam (neuro): 5/5 motor strength present throughout Extrem: Other: venous exam: No significant superficial varicosities or spider telangiectasias, minimal edema General: No clubbing, No cyanosis and No edema Psych: Appearance: grossly normal Mental Status: mental status grossly normal Speech and movement: Normal speech and movement present Results Labs 11/22/23 04:58 11/22/23 04:58 Labs: Abnormal lab results 11/21/23 11/22/23 Range/Units 14:41 04:58 WBC 13.2 H (4.8-10.8) X10*3/uL RBC 4.35 L (4.60-5.80) X10*6/uL Hgb 13.1 L (14.0-18.0) g/dl Hct 39.0 L (42.0-52.0) % MPV 9.0 L 9.1 L (9.4-12.4) fL Neut % (Auto) 87.6 H 75.0 H (45-73) % Lymph % (Auto) 6.1 L 13.7 L (20-40) % Lymph # (Auto) 0.8 L (1.2-4.9) X10*3/uL Abs Immat Gran (auto) 0.04 H 0.04 H (0.00-0.03) X10*3/uL Absolute Neuts (auto) 11.6 H (2.0-8.3) x10*3/uL ESR 51 H (0-15) MM/HR Potassium 3.1 L (3.3-5.1) mmol/L BUN 19 H (9-16) mg/dL Random Glucose 125 H (60-115) mg/dL Lactic Acid 2.5 H* (0.5-2.0) mmol/L C-Reactive Protein 13.07 H (< or = 0.50) mg/dL B-Natriuretic Peptide 254 H (<100) pg/mL Short CBC 11/21/23 11/22/23 Range/Units 14:41 04:58 WBC 13.2 H 10.5 (4.8-10.8) X10*3/uL Hgb 14.3 13.1 L (14.0-18.0) g/dl Hct 42.3 39.0 L (42.0-52.0) % Plt Count 258 215 (160-400) X10*3/uL BMP 11/21/23 11/22/23 14:41 04:58 Sodium 140 142 Potassium 3.7 3.1 L Chloride 100 102 Carbon Dioxide 26 28 BUN 15 19 H Creatinine 0.81 0.94 Calcium 10.1 9.1 D Liver Function 11/21/23 Range/Units 14:41 Total Bilirubin 0.8 (0.0-1.0) mg/dL AST 17 (5-37) U/L ALT 13 (0-40) U/L Alkaline Phosphatase 75 (39-117) U/L Albumin 3.9 (3.5-5.0) g/dL All other labs normal. Assessment and Plan (1) PAD (peripheral artery disease): Status: Acute In short patient has peripheral vascular disease. On 05/18/2008 he had undergone right to left femoral to femoral bypass which appears to be occluded on noninvasive testing. I have taken the liberty of ordering CT angiogram with runoff to better elucidate the true degree of disease. We will continue to follow his hospital stay. The concern here is that he has a combination of disease of peripheral vascular disease along with lymphedema which will make this difficult to treat. (2) Lymphedema: Status: Acute Plan Patient does have clinical stigmata of lymphedema. At the current time would continue with local wound care. We will workup his arterial disease 1st. We will then dress possible venous versus lymphedema. It does appear to be more of lymphedema. We will continue to follow this patient with you. Thank you for allowing us to assist in his care Procedures Date of Service Date of Service: 11/22/23
[2023-11-22] MEDS: amLODIPine Besylate 5 MG TABLET PO (14:10)
[2023-11-22] MEDS: Potassium Chloride Packet 20 MEQ PACKET 40 MEQ PO (14:10)
[2023-11-22] MEDS: Aspirin Enteric Coated 81 MG TABLET.DR PO (14:11)
--- NOTE | 2023-11-22 15:31 | HE.PHANOTE ---
Re Vanco trough drawn appropriately and resulted at 15.0. Will continue regimen for now, recheck tomorrow after two more doses to asses steady state levels and adjust as needed.
--- NOTE | 2023-11-22 16:02 | HO.WOUND ---
Wound Consult: Initial 78yr old?male admitted to [facility] on 11/21/23 - See progress notes and H&P for detailed history.? Wound consult placed for Bilateral Lower Leg.? Patient agreeable to assessment and photo documentation.? Patient appears unkept and the feet are significantly dirty, there is debris and hair matted to foot. I attempted to clean this but patient was only able to tolerate so much. Will recommend continue washing to encourage better assessment. Patient has since been seen by Dr. Kennedy for vascular assessment - Dr. Kennedy deferred topical recommendations to inpt wound care nurse. He will continue workup. Patient has known PVD and per Dr. Kennedy note suspected Lymphedema. Of note the patient has pain with elevation and and refused elevation given this pain and discomfort. Left Foot Left Plantar Foot Etiology: ??Venous Wounds and suspect arterial wound - given current documentation of blockage Wound Bed: Great toe is mal odorous and dry black necrotic tissue Between toes and dorsal foot is yellow moist slough with maceration noted. Drainage / Odor: difficult to assessed - draineg dried to foot and significant amount of dirt and hair matted to foot Edges: ? irregular Juany wound: ?redness, swelling and pitting edema - no PP per direct care team - providers aware Pain: patient reports some pain with cleansing - unable to tolerate total cleansing. Significant pain with elevation noted. Goals of Treatment: ? Betadine to great toe to keep dry and stable, Dorsal foot with Alginate for moisture management. Right Foot - no open wound noted at this time swelling noted and redness noted. Will monitor for wound development and or drainage. Recommendations: 1. Off Load all bony prominences with use of pillows and heel boots if needed.? Apply Preventative foams where needed. ? 2. Monitor for incontinence and moisture control, use barrier creams when needed for prevention and treatment. 3. Provide adequate and supplemental nutrition.? 4. When applicable maintain blood glucose levels per Providers order. 5. Bilateral Feet - Wash feet and legs with brian no rinse wash. Elevate lower legs. To Left great toe apply Betadine daily. To Dorsal Left foot and wounds to toes apply Durafiber AG, cover with Dry gauze, Absorptive dressing, wrap. Change Daily. Re-consult wound care Nurse for wound deterioration or wound changes.
[2023-11-22] MEDS: iohexoL 350 MG/ML 100 ML INFUS..BTL IV (16:35)
[2023-11-22] MEDS: Enoxaparin Sodium 40 MG/0.4 ML SYRINGE SUBCUT (16:42)
[2023-11-22] MEDS: Acetaminophen 325 MG TABLET 650 MG PO (20:40)
--- NOTE | 2023-11-22 23:51 | PM.EVENT ---
Event Note Date of Service: 11/22/23 Event Note: Dr Kennedy made aware of the findings of CT angio with runoff Time Spent With Patient Time: Total time managing care of this patient today ____ minutes.
[2023-11-23] VITALS (7 sets, daily range): BP systolic 133–159; BP diastolic 70–84; PULSE 83–100; RESP 14–18; TEMP 36.1–37.7; O2SAT 94–98
--- NOTE | 2023-11-23 00:23 | W.PM.IDCN ---
History of Present Illness Data of Consult Service Date: 11/22/23 Requesting physician: Chely Chacon Primary Care Provider: Norris Sinha MD [facility] Reason for consult: left great toe OM He presents with worsening swelling and redness bilateral lower extremities. He has had open area left great toe. He has no fever or chills. He has not taken care of himself lately and has not seen doctors. He lives with son. He has PVD and has had femoral bypass bilateral Dr Delarosa in 2008. Review of Systems Review of Systems: Yes all other systems are reviewed and are negative [facility] Past Medical History Medical History Cigarette smoker HTN (hypertension) Family History Family history: reviewed and not pertinent Social History Social History Household Members: Family Housing: House Do you presently have visiting nurse or other home services: No Patient Tobacco Use Status: Current everyday Tobacco user Tobacco use type: Cigarette Cigarettes Per Day: 20 Years Smoked: 50 Smoked in Last 30 Days: Yes e-Cigarette/Vaping Use: Currently Using Patient Interested in Nicotine Replacement: No Use of substances other than those prescribed or required for medical reasons: No Currently Displaying Signs/Symptoms of Drug Intoxication Withdrawal: No Have you been hit, kicked, punched, or otherwise hurt by someone within the past year? If so, by whom?: No Do you feel safe in your current relationship?: No Is there a partner from a previous relationship who is making you feel unsafe now?: No Are you made to feel afraid or neglected: No Advance Directives: No Advance Directives Information Provided: Yes Do you have a plan to hurt others: No Plan Recently lost weight without trying: Unsure Nutrition Risks: Poor intake 0-25% >4 days Poor oral hygiene: Yes service: No Meds Allergies Allergy/AdvReac Type Severity Reaction Status Date / Time No Known Allergies Allergy Mild NONE Verified 11/21/23 14:26 Active Medications: Current Medications Acetaminophen (Acetaminophen 325 Mg Tablet) 650 mg PO Q6H PRN PRN Reason: Pain, Mild (Pain Scale 1-3), fever or headache Last Admin: 11/22/23 20:40 Dose: 650 mg Amlodipine Besylate (Amlodipine Besylate 5 Mg Tablet) 5 mg PO DAILY [facility]; Protocol Last Admin: 11/22/23 14:10 Dose: 5 mg Aspirin (Aspirin Enteric Coated 81 Mg Tablet.Dr) 81 mg PO DAILY [facility] Last Admin: 11/22/23 14:11 Dose: 81 mg Calcium Carbonate (Calcium Carbonate 750 Mg Tab.Chew) 750 mg PO Q4H PRN PRN Reason: Heartburn Enoxaparin Sodium (Enoxaparin Sodium 40 Mg/0.4 Ml Syringe) 40 mg SUBCUT Q24H [facility] Last Admin: 11/22/23 16:42 Dose: 40 mg Furosemide (Furosemide 40 Mg Tablet) 40 mg PO DAILY [facility]; Protocol Piperacillin Sod/Tazobactam (Sod 4.5 gm/ Sodium Chloride) 100 mls @ 200 mls/hr IV Q6H [facility] Last Infusion: 11/22/23 21:32 Dose: Infused Vancomycin HCl 1,000 mg/ (Sodium Chloride) 270 mls @ 270 mls/hr IV Q12H [facility] Last Infusion: 11/22/23 18:29 Dose: Infused Magnesium Hydroxide (Milk Of Magnesia 30 Ml Oral.Susp) 30 ml PO DAILY PRN PRN Reason: Constipation Melatonin (Melatonin 3 Mg Tablet) 6 mg PO BEDTIME PRN PRN Reason: Insomnia Morphine Sulfate (Morphine Sulfate 2 Mg/Ml Cartridge) 2 mg IVPUSH Q4H PRN; Protocol PRN Reason: Pain, Severe (Pain Scale 7-10) Oxycodone HCl (Oxycodone Hcl Immed Release 5 Mg Tablet) 5 mg PO Q6H PRN PRN Reason: Pain, Moderate(Pain Scale 4-6) Pharmacy Consult (Consult Rx Vancomycin Dosing) 1 each MISCELLANE DAILY PRN PRN Reason: Consult order Sodium Chloride (0.9 % Sodium Chloride Flush 3 Ml Syringe) 3 ml IVFLUSH QSHIFT [facility] Last Admin: 11/22/23 20:45 Dose: 3 ml Home Medications ?Medication ?Instructions ?Recorded ?Confirmed ?Last Taken ?Type aspirin 81 mg tablet,delayed 81 mg PO DAILY 11/21/23 11/21/23 11/20/23 History release Physical Exam Vital Signs: Vital Signs: Last Vital Signs Temp 98.2 F 11/22/23 23:36 Pulse 83 11/22/23 23:36 Resp 18 11/22/23 23:36 BP 144/74 H 11/22/23 23:36 Pulse Ox 97 11/22/23 23:36 O2 Del Method Room Air 11/22/23 23:36 BMI result Body Mass Index 24.0 Const: General: cooperative HEENT: Head: Yes normal to inspection Face and sinus: Yes normal facial exam Mouth: Normal oral and palatal mucosa present Teeth and gingiva: dentition normal Eyes: General: appearance normal, both eyes and all related structures Pupils: Equal, round and reactive pupils present Resp: Effort & Inspection: normal respiratory effort Cardio: Rate: regular rate Rhythm: regular rhythm GI: Palpation (GI): Soft to palpation and nontender : General: Yes no CVA tenderness Back/Spine/Pelvis: Back: no CVA tenderness Skin: General skin exam: no rashes or lesions noted Neuro: General: moves all extremities Cranial nerves: Yes Equal, round and reactive pupils present Extrem: Other: bright reddened legs bilateral swelling legs especially top feet diminished pulses,plus 2 open area left great toe with eschar Psych: Appearance: grossly normal Results Labs 11/22/23 04:58 11/22/23 04:58 Labs: Short CBC 11/22/23 Range/Units 04:58 WBC 10.5 (4.8-10.8) X10*3/uL Hgb 13.1 L (14.0-18.0) g/dl Hct 39.0 L (42.0-52.0) % Plt Count 215 (160-400) X10*3/uL BMP 11/22/23 04:58 Sodium 142 Potassium 3.1 L Chloride 102 Carbon Dioxide 28 BUN 19 H Creatinine 0.94 Calcium 9.1 D Microbiology Microbiology Results: Microbiology 11/21/23 15:19 Blood - Venous Blood Culture - Preliminary No growth after 24 hours. 11/21/23 14:41 Blood - Venous Blood Culture - Preliminary No growth after 24 hours. 11/21/23 15:19 Foot Left Gram Stain - Final 11/21/23 15:19 Foot Left Routine Culture - Preliminary Culture in progress. Assessment and Plan (1) Lymphedema: Status: Acute (2) PAD (peripheral artery disease): Status: Acute (3) Osteomyelitis of great toe of left foot: Status: Acute Plan He has PAD and venous disease as well likely. He could use perhaps stent/bypass and is seeing Vascular now. Would continue Zosyn and Vancomycin for now. If not getting amputation for all areas of OM on left toe would give six weeks IV Ertapenem unless cultures indicate otherwise.
[2023-11-23] MEDS: Piperacillin Sodium/Tazobactam 4.5 GM in 0.9 % Sodium Chloride 100 ML IV ×4 (03:41→21:36)
[2023-11-23] MEDS: vancomycin HCL 1,000 MG in 0.9 % Sodium Chloride 250 ML 270 MG IV (04:19)
[2023-11-23 06:45] LABS: MANUAL DIFF FLAG NO
[2023-11-23 06:53] LABS: Basophils Percent Auto 0.3 % (0-2); Eosinophils Absolute Auto 0.2 X10*3/uL (0.0-0.4); Eosinophils Percent Auto 1.7 % (0-4); Hematocrit 37.2 % (42.0-52.0); Hemoglobin 12.5 g/dl (14.0-18.0); Imm Gran Abs Auto 0.04 X10*3/uL (0.00-0.03); Imm Gran Pct Auto 0.3 % (0.0-0.4); Lymphocytes Absolute Auto 1.8 X10*3/uL (1.2-4.9); Lymphocytes Percent Auto 14.1 % (20-40); Mean Corpuscular HGB Conc 33.6 g/dl (31.0-36.0); Mean Corpuscular Hemoglobin 30.3 pg (27.0-33.0); Mean Corpuscular Volume 90.3 fL (80.0-98.0); Mean Platelet Volume 9.7 fL (9.4-12.4); Monocytes Absolute Auto 1.1 X10*3/uL (0.1-1.2); Monocytes Percent Auto 8.4 % (2-11); Neutrophils Absolute Auto 9.7 x10*3/uL (2.0-8.3); Neutrophils Percent Auto 75.2 % (45-73); Platelet Count 232 X10*3/uL (160-400); Red Blood Count 4.12 X10*6/uL (4.60-5.80); Red Cell Distribution Width 14.2 % (11.0-16.0); White Blood Count 12.9 X10*3/uL (4.8-10.8)
[2023-11-23 07:03] LABS: Anion Gap 14 (12-20); Blood Urea Nitrogen 19 mg/dL (9-16); Carbon Dioxide 25 mmol/L (22-29); Chloride 103 mmol/L (96-108); Estimated Glomerular Filt Rate > 60; Glucose Random 103 mg/dL (60-115); Potassium 3.4 mmol/L (3.3-5.1); Sodium 139 mmol/L (135-145)
[2023-11-23] MEDS: Aspirin Enteric Coated 81 MG TABLET.DR PO (10:27)
[2023-11-23] MEDS: amLODIPine Besylate 5 MG TABLET PO (10:27)
[2023-11-23] MEDS: Furosemide 40 MG TABLET PO (10:28)
[2023-11-23] MEDS: 0.9 % Sodium Chloride Flush 3 ML SYRINGE IVFLUSH ×2 (10:28→15:55)
--- NOTE | 2023-11-23 12:28 | PM.CNGS ---
History of Present Illness Consult details Consult date: 11/23/23 Reason for consult: wound care Narrative: Very complex 78-year-old gentleman has significantly swollen and nonhealing lower extremity ulcers. He has undergone CT angiogram. He now presents for routine follow-up Review of Systems Review of Systems: Yes all other systems are reviewed and are negative Constitutional: Constitutional: Reports no additional constitutional complaints ENT: Reports Normal hearing present Cardiovascular: Cardiovascular: Denies chest pain, Denies chest pain at rest, Denies chest pain with activity and Denies pedal edema Respiratory: Respiratory: Denies cough Gastrointestinal: Gastrointestinal: Denies abdominal pain Musculoskeletal: Musculoskeletal: Denies abnormal gait, Denies muscle cramps and Denies radiating pain into limb Integumentary/Breasts: Skin/Breast: Denies skin ulcer and Denies wounds Neurologic: Reports Normal hearing present and Denies abnormal gait Psychiatric: Psychiatric: Reports no additional psychiatric complaints PMFSH Past Medical History Medical History Cigarette smoker HTN (hypertension) Family History Family history: reviewed and not pertinent Social History Social History Household Members: Family Housing: House Do you presently have visiting nurse or other home services: No Patient Tobacco Use Status: Current everyday Tobacco user Tobacco use type: Cigarette Cigarettes Per Day: 20 Years Smoked: 50 Smoked in Last 30 Days: Yes e-Cigarette/Vaping Use: Currently Using Patient Interested in Nicotine Replacement: No Use of substances other than those prescribed or required for medical reasons: No Currently Displaying Signs/Symptoms of Drug Intoxication Withdrawal: No Have you been hit, kicked, punched, or otherwise hurt by someone within the past year? If so, by whom?: No Do you feel safe in your current relationship?: No Is there a partner from a previous relationship who is making you feel unsafe now?: No Are you made to feel afraid or neglected: No Advance Directives: No Advance Directives Information Provided: Yes Do you have a plan to hurt others: No Plan Recently lost weight without trying: Unsure Nutrition Risks: Poor intake 0-25% >4 days Poor oral hygiene: Yes service: No Meds Allergies Allergy/AdvReac Type Severity Reaction Status Date / Time No Known Allergies Allergy Mild NONE Verified 11/21/23 14:26 Active Medications: Current Medications Acetaminophen (Acetaminophen 325 Mg Tablet) 650 mg PO Q6H PRN PRN Reason: Pain, Mild (Pain Scale 1-3), fever or headache Last Admin: 11/22/23 20:40 Dose: 650 mg Amlodipine Besylate (Amlodipine Besylate 5 Mg Tablet) 5 mg PO DAILY [facility]; Protocol Last Admin: 11/23/23 10:27 Dose: 5 mg Aspirin (Aspirin Enteric Coated 81 Mg Tablet.Dr) 81 mg PO DAILY [facility] Last Admin: 11/23/23 10:27 Dose: 81 mg Calcium Carbonate (Calcium Carbonate 750 Mg Tab.Chew) 750 mg PO Q4H PRN PRN Reason: Heartburn Enoxaparin Sodium (Enoxaparin Sodium 40 Mg/0.4 Ml Syringe) 40 mg SUBCUT Q24H [facility] Last Admin: 11/22/23 16:42 Dose: 40 mg Furosemide (Furosemide 40 Mg Tablet) 40 mg PO DAILY [facility]; Protocol Last Admin: 11/23/23 10:28 Dose: 40 mg Piperacillin Sod/Tazobactam (Sod 4.5 gm/ Sodium Chloride) 100 mls @ 200 mls/hr IV Q6H [facility] Last Infusion: 11/23/23 11:21 Dose: Infused Vancomycin HCl 1,000 mg/ (Sodium Chloride) 270 mls @ 270 mls/hr IV Q12H [facility] Last Infusion: 11/23/23 05:22 Dose: Infused Magnesium Hydroxide (Milk Of Magnesia 30 Ml Oral.Susp) 30 ml PO DAILY PRN PRN Reason: Constipation Melatonin (Melatonin 3 Mg Tablet) 6 mg PO BEDTIME PRN PRN Reason: Insomnia Morphine Sulfate (Morphine Sulfate 2 Mg/Ml Cartridge) 2 mg IVPUSH Q4H PRN; Protocol PRN Reason: Pain, Severe (Pain Scale 7-10) Oxycodone HCl (Oxycodone Hcl Immed Release 5 Mg Tablet) 5 mg PO Q6H PRN PRN Reason: Pain, Moderate(Pain Scale 4-6) Pharmacy Consult (Consult Rx Vancomycin Dosing) 1 each MISCELLANE DAILY PRN PRN Reason: Consult order Sodium Chloride (0.9 % Sodium Chloride Flush 3 Ml Syringe) 3 ml IVFLUSH QSHIFT [facility] Last Admin: 11/23/23 10:28 Dose: 3 ml Home Medications ?Medication ?Instructions ?Recorded ?Confirmed ?Last Taken ?Type aspirin 81 mg tablet,delayed 81 mg PO DAILY 11/21/23 11/21/23 11/20/23 History release Physical Exam Vital Signs: Vital Signs: Last Vital Signs Temp 98.0 F 11/23/23 11:21 Pulse 85 11/23/23 11:21 Resp 18 11/23/23 11:21 BP 159/72 H 11/23/23 11:21 Pulse Ox 95 11/23/23 11:21 O2 Del Method Room Air 11/23/23 11:21 BMI result Body Mass Index 24.0 Const: General: cooperative, healthy appearing and comfortable Orientation/consciousness: oriented to person, oriented to place and oriented to time HEENT: Head: Yes normal to inspection Neck: Neck: Yes normal visual inspection Carotids: no bruits Chest: Chest palpation & inspection: normal inspection of the chest Resp: Effort & Inspection: normal respiratory effort and able to speak in complete sentences Auscultation: clear to auscultation bilaterally, no crackles, no rales, no rhonchi and no wheezes Cardio: Rate: regular rate Rhythm: regular rhythm Heart sounds: S1 normal heart sound present and S2 normal heart sound present Bruits: no carotid bruits Peripheral pulses: Peripheral pulses 2+ throughout GI: Inspection: Yes normal to inspection Skin: Other: +2 +3 edema. Left foot dorsum of skin nonhealing ulcer Wounds: no wounds Hair: normal Neuro: General: oriented to person, oriented to place and oriented to time Cranial nerves: Yes CN's II-XII intact bilaterally and Yes Normal hearing present Cognition (Neuro): normal cognition Motor exam (neuro): 5/5 motor strength present throughout Extrem: Other: venous exam: No significant superficial varicosities or spider telangiectasias, minimal edema General: No clubbing, No cyanosis and No edema Psych: Appearance: grossly normal Mental Status: mental status grossly normal Speech and movement: Normal speech and movement present Results Labs 11/23/23 05:16 11/23/23 05:16 Labs: Abnormal lab results 11/23/23 Range/Units 05:16 WBC 12.9 H (4.8-10.8) X10*3/uL RBC 4.12 L (4.60-5.80) X10*6/uL Hgb 12.5 L (14.0-18.0) g/dl Hct 37.2 L (42.0-52.0) % Neut % (Auto) 75.2 H (45-73) % Lymph % (Auto) 14.1 L (20-40) % Abs Immat Gran (auto) 0.04 H (0.00-0.03) X10*3/uL Absolute Neuts (auto) 9.7 H (2.0-8.3) x10*3/uL BUN 19 H (9-16) mg/dL Short CBC 11/23/23 Range/Units 05:16 WBC 12.9 H (4.8-10.8) X10*3/uL Hgb 12.5 L (14.0-18.0) g/dl Hct 37.2 L (42.0-52.0) % Plt Count 232 (160-400) X10*3/uL BMP 11/23/23 05:16 Sodium 139 Potassium 3.4 Chloride 103 Carbon Dioxide 25 BUN 19 H Creatinine 0.79 Calcium 9.0 All other labs normal. Assessment and Plan (1) PAD (peripheral artery disease): Status: Acute Complex 78-year-old with severe peripheral vascular disease. Imaging demonstrates multilevel disease including an occlusion of the infrarenal aorta. Occluded iliac system. In addition the patient has an occluded femoral to femoral bypass. There is also occlusion of bilateral femoral arteries with reconstitution of the distal popliteal arteries. In short patient has significant multilevel disease. He will require higher level of care to be able to get this treated. I do believe that he will have significant underlying coronary artery disease. The unfortunate situation for him is his insurance. I did suggest that he coordinate this with social psychologist in order to get this straightened out. He will require higher level of care to a tertiary care center. Happy to coordinate this referral. This all appears to be chronic in nature. Stable from my perspective for discharge. He can see us as an outpatient. Thank you for allowing us to assist in his care. (2) Lymphedema: Status: Acute Does have clinical stigmata of lymphedema. His arterial needs to be addressed 1st though. Significant multilevel disease. Procedures Date of Service Date of Service: 11/23/23
--- NOTE | 2023-11-23 14:22 | HO.PM.IMPN ---
Subjective Subjective Date of Service: 11/23/23 Interval History: osteomyelitis left great toe Review of Systems foot pain seems somewhat improving no fever or chills Physical Exam Vital Signs: Vital Signs: Last Vital Signs Temp 98.0 F 11/23/23 11:21 Pulse 85 11/23/23 11:21 Resp 18 11/23/23 11:21 BP 159/72 H 11/23/23 11:21 Pulse Ox 95 11/23/23 11:21 O2 Del Method Room Air 11/23/23 11:21 BMI result Body Mass Index 24.0 Appearance: Alert.? Oriented X3. cvs: rrr, [id number] , no murmur res: clear to auscultation ,no rhonchii or wheezing abd: no rebound or guarding ,nt, bs present. ext pulses present , no cyanosis, scaling skin of the BLE with erythema and slight warmth L>R. some purulent drainage to the dorsum of the L foot. neuro: axo3 , nonfocal. Objective Data Active Medications Acetaminophen (Acetaminophen 325 Mg Tablet) 650 mg PO Q6H PRN PRN Reason: Pain, Mild (Pain Scale 1-3), fever or headache Last Admin: 11/22/23 20:40 Dose: 650 mg Documented By: ZAID Amlodipine Besylate (Amlodipine Besylate 5 Mg Tablet) 5 mg PO DAILY [facility]; Protocol Last Admin: 11/23/23 10:27 Dose: 5 mg Documented By: ANASTACIO Aspirin (Aspirin Enteric Coated 81 Mg Tablet.) 81 mg PO DAILY [facility] Last Admin: 11/23/23 10:27 Dose: 81 mg Documented By: ANASTACIO Calcium Carbonate (Calcium Carbonate 750 Mg Tab.Chew) 750 mg PO Q4H PRN PRN Reason: Heartburn Enoxaparin Sodium (Enoxaparin Sodium 40 Mg/0.4 Ml Syringe) 40 mg SUBCUT Q24H [facility] Last Admin: 11/22/23 16:42 Dose: 40 mg Documented By: SOLANGE Furosemide (Furosemide 40 Mg Tablet) 40 mg PO DAILY [facility]; Protocol Last Admin: 11/23/23 10:28 Dose: 40 mg Documented By: ANASTACIO Piperacillin Sod/Tazobactam (Sod 4.5 gm/ Sodium Chloride) 100 mls @ 200 mls/hr IV Q6H [facility] Last Infusion: 11/23/23 11:21 Dose: Infused Documented By: ANASTACIO Vancomycin HCl 1,000 mg/ (Sodium Chloride) 270 mls @ 270 mls/hr IV Q12H [facility] Last Infusion: 11/23/23 05:22 Dose: Infused Documented By: ZAID Magnesium Hydroxide (Milk Of Magnesia 30 Ml Oral.Susp) 30 ml PO DAILY PRN PRN Reason: Constipation Melatonin (Melatonin 3 Mg Tablet) 6 mg PO BEDTIME PRN PRN Reason: Insomnia Morphine Sulfate (Morphine Sulfate 2 Mg/Ml Cartridge) 2 mg IVPUSH Q4H PRN; Protocol PRN Reason: Pain, Severe (Pain Scale 7-10) Oxycodone HCl (Oxycodone Hcl Immed Release 5 Mg Tablet) 5 mg PO Q6H PRN PRN Reason: Pain, Moderate(Pain Scale 4-6) Pharmacy Consult (Consult Rx Vancomycin Dosing) 1 each MISCELLANE DAILY PRN PRN Reason: Consult order Sodium Chloride (0.9 % Sodium Chloride Flush 3 Ml Syringe) 3 ml IVFLUSH QSHIFT [facility] Last Admin: 11/23/23 10:28 Dose: 3 ml Documented By: ANASTACIO Labs 11/23/23 05:16 11/23/23 05:16 Labs: Laboratory Results - last 24 hr 11/22/23 11/23/23 15:02 05:16 MCV 90.3 MCH 30.3 MCHC 33.6 RDW 14.2 Plt Count 232 MPV 9.7 Immature Gran % (Auto) 0.3 Neut % (Auto) 75.2 H Lymph % (Auto) 14.1 L Amador % (Auto) 8.4 Eos % (Auto) 1.7 Baso % (Auto) 0.3 Lymph # (Auto) 1.8 Amador # (Auto) 1.1 Eos # (Auto) 0.2 Baso # (Auto) 0.0 Abs Immat Gran (auto) 0.04 H Absolute Neuts (auto) 9.7 H Absolute Nucleated RBC 0.000 Nucleated RBC % (auto) 0.0 Anion Gap 14 Estim Creat Clear Calc 82.0 Estimated GFR > 60 Random Glucose 103 Calcium 9.0 Random Vancomycin 15.0 Microbiology Microbiology Results: Microbiology 11/21/23 15:19 Gram Stain - Final Foot Left Routine Culture - Preliminary Gram negative alan 11/21/23 15:19 Blood Culture - Preliminary Blood - Venous No growth after 24 hours. 11/21/23 14:41 Blood Culture - Preliminary Blood - Venous No growth after 24 hours. Assessment and Plan (1) Lymphedema: Status: Acute (2) PAD (peripheral artery disease): Status: Acute (3) Osteomyelitis of great toe of left foot: Status: Acute Plan 78 year old male with history of htn not on medications who is a current 1ppd smoker (30+ pack year history) admitted for acute osteomyelitis L great toe and ble cellulitis Acute osteomyelitis L great toe and BLE cellulitis with sepsis leucocytosis flactuating (13.2 -10.5 -12.9) XR L great toe with evidence of osteomyelitis CRP 13, ESR 51 Arterial doppler BLE show occulsion of the fem-fembypass graft (2008-Dr Delarosa) with severe PAD> CTA aorta done-occlusion of bilateral femoral arteries with reconstitution of the distal popliteal arteries. blood cultures neg @24hrs plan: continue aspirin,pain management prn,wound culture pending& cultures ID and vascular surgery input appreciated-continue antibiotics ,will need outpatient vascular followup for further management ,recomended iv antibiotics for osteomyelitis . PT eval-str. PAD-Arterial doppler BLE show occulsion of the fem-fembypass graft (2008-Dr Delarosa) with severe PAD> CTA aorta ordered by vasular surgery CTA aorta w runoff per vascular surgery- as above. vascular surgery input appreciated, continue asa BLE edema- seems consistent with lymphedema venous duplex negative for DVT Continue 40 mg p.o. Lasix acute hypokalemia-likely related to Lasix. improved HTN: continue amlodipine 5 mg daily Cigarette smoker-declines NRT, reports 1PPD last 20 years had quit for 20 years prior to this, but at least 30+ pack year history Acute normocytic anemia-above transfusion threshold, likely related to acute illness DVT prophylaxis- lovenox full code ongoing inpatient anthony stay due to acute osteomyelitis of the left great toe with cellulitis and sepsis requiring IV antibiotics, expert consultation, final cultures and probable long-term antibiotics with anticipated discharge to short-term rehab Quality Stroke Does the patient have a stroke diagnosis?: No VTE Prior VTE?: No VTE Risk Level:: Medical - moderate - high VTE Device Contraindication: Treatment Not Indicated VTE Drug Contraindication: N/A - Med Ordered
[2023-11-23 16:06] LABS: Vancomycin Random 13.3 mcg/mL (15-20)
[2023-11-23] MEDS: vancomycin HCL 1,250 MG in 0.9 % Sodium Chloride 250 ML 166.67 MG IV (16:41)
[2023-11-23] MEDS: Enoxaparin Sodium 40 MG/0.4 ML SYRINGE SUBCUT (16:42)
--- NOTE | 2023-11-24 | ECG_ITS ---
Test Reason : stat order Blood Pressure : / mmHG Vent. Rate : 087 BPM Atrial Rate : 087 BPM P-R Int : 148 ms QRS Dur : 116 ms QT Int : 376 ms P-R-T Axes : 039 029 187 degrees QTc Int : 452 ms Normal sinus rhythm Possible Left atrial enlargement Left ventricular hypertrophy with QRS widening and repolarization abnormality ( Sokolow-Fisher ) Cannot rule out Inferior infarct , age undetermined Abnormal ECG When compared with ECG of 21-NOV-2023 15:06, T wave inversion now evident in Inferior leads T wave inversion now evident in Anterior leads Referred By: Johanna Schmitz Electronically Signed By:JOHN CRUMP
[2023-11-24] MEDS: 0.9 % Sodium Chloride Flush 3 ML SYRINGE IVFLUSH ×3 (00:45→16:59)
[2023-11-24 02:48] VITALS: BP 170/82; PULSE 78; RESP 18; TEMP 36.5; O2SAT 96
[2023-11-24] MEDS: Piperacillin Sodium/Tazobactam 4.5 GM in 0.9 % Sodium Chloride 100 ML IV (03:00)
[2023-11-24] MEDS: Acetaminophen 325 MG TABLET 650 MG PO ×3 (03:04→23:52)
[2023-11-24] MEDS: vancomycin HCL 1,250 MG in 0.9 % Sodium Chloride 250 ML 166.67 MG IV (03:35)
[2023-11-24 07:34] LABS: Estimated Glomerular Filt Rate > 60
[2023-11-24] MEDS: amLODIPine Besylate 5 MG TABLET PO (07:40)
[2023-11-24] MEDS: Furosemide 40 MG TABLET PO (07:40)
[2023-11-24] MEDS: Aspirin Enteric Coated 81 MG TABLET.DR PO (07:40)
[2023-11-24 08:00] VITALS: BP 173/73; PULSE 85; RESP 18; TEMP 36.1; O2SAT 98
--- NOTE | 2023-11-24 11:35 | PM.DS ---
DS: Providers Provider Date of Service: 11/25/23 Date of admission: 11/21/23 16:52 Date of discharge: 11/25/23 Primary care physician: Norris Sinha MD Consults: 11/21/23 16:51 Consult to Infectious Diseases Routine Consulting Provider: [facility] Reason for consultation: OM L great toe Consult to Vascular Surgery Routine Consulting Provider: [facility] Reason for consultation: osteomyelitis L great toe 11/21/23 17:13 Consult to Wound Care Routine Reason for consultation: BLE cellulitis, necrosis Attending physician on discharge: Johanna Schmitz Discharging clinician: Johanna Schmitz DS: Diagnosis Discharge Diagnosis (1) Lymphedema: Status: Acute (2) PAD (peripheral artery disease): Status: Acute (3) Osteomyelitis of great toe of left foot: Status: Acute DS: Summary Hospital Course Hospital Course: Date of service and discharge: 11/26/23. 78 year old male with history of htn not on medications who is a current 1ppd smoker (30+ pack year history) presented to the ED earlier today at the recommendation of his son due to redness and swelling of the bilateral feet. He has had redness and swelling of the BLE that is chronic L>R, but has worsened over the last month, particularly over the last week. He states he has sensation in his feet but due to the swelling and discomfort he has been having difficulty ambulating more than 10 feet at a time. He did have a fall at home and possibly hit his head but no LOC, not on thinners. He reports the cat scratched the outside of the L great toe and subseqeuntly part of the toe fell off over the last week. No fevers, chills, abd pain, n/v/d, neck pain, headache, paresthesias, lightheadedness, palpitations, sob, or chest pain. He is generally unkempt and is unable to tell me exactly how long his feet have been like this, gives history based on what his son reported. Since arrival afebrile but tachycardic to 110. Has a leukocytosis of 13.5. Renal function and lytes wnl. CRP 13, ESR pending. Lactic acid 2.5. BNP 254. X-ray of the left foot shows soft tissue ulceration overlying the 1st toe with osseous destructive changes of the distal tuft of the 1st distal phalanx consistent with osteomyelitis. X-ray of the right foot shows marked soft tissue swelling without any acute osseous process. In the ED has received zosyn and vanco. Hospital course: PatienPatient with a history of hypertension, PaD who is active smoker-came to the hospital because of acute osteomyelitis of left great toe bilateral cellulitis with sepsis : Patient had mild leukocytosis, x-ray left toe shows evidence of osteomyelitis, ESR 51 CRP is 13, blood and wound Cultures left foot sent,in addition patient 's arterial dupplex showed -occulsion of the fem-fembypass graft (2008-Dr Delarosa) with severe PAD-subsequently seen by vascular surgery andCTA aorta w runoff per vascular surgery and reivewed by vascular - Imaging demonstrates multilevel disease including an occlusion of the infrarenal aorta. Occluded iliac system. In addition the patient has an occluded femoral to femoral bypass. This appears to be chronic in nature. Vascular recommended-IV antibiotics for osteomyelitis currently and need vascular for further management of PAD for which require higher level of care to a tertiary care center. Above was also discussed with ID: Recommended levaquin 750 mg q24hr , flagyl 500 mg iv bid,his foot erythema and driange not improving-great toe remains with significant odor and blackish discoluration at tip (? necrosis ) . Consider ID evaluation also. Discussed with the [facility] vascular-patient will be going to [facility] for further vascular evaluation for above and possible needed vascular intervention for severe multi level the pad. Patient was strongly advised to abstain from smoking considering severe PAD .nicotein patch as needed. continue asa,lipid panel pending.HbA1C is 5.5. Lymphedema, has elevated bnp. Echo was done patient had 35-40% EF seen by cardiology-already on aspirin statin beta-chao, added losartan. Seems euvolemic currently,Continue Lasix 20 mg daily as needed. Consider cardiology evaluation . Above management discussed with the patient detail length he understand and in agreement with the above plan, time spent 40 minute. Time Attestation Total time managing care of this patient today: 40 mintues. Discharge Coordination Time (in mins): 40 min Quality: Safe Use of Opioids Does Pt have an Active Cancer Diagnosis on the Problem List?: No Quality: Stroke Does the patient have a stroke diagnosis?: No Physical Exam Vital Signs: Vital Signs: Last Vital Signs Temp 97.0 F 11/24/23 08:00 Pulse 85 11/24/23 08:00 Resp 18 11/24/23 08:00 BP 173/73 H 11/24/23 08:00 Pulse Ox 98 11/24/23 08:00 O2 Del Method Room Air 11/24/23 08:00 BMI result Body Mass Index 24.0 Appearance: Alert.? Oriented X3. cvs: rrr, [id number] , no murmur res: clear to auscultation ,no rhonchii or wheezing abd: no rebound or guarding ,nt, bs present. ext pulses present , no cyanosis, scaling skin of the BLE with erythema and slight warmth L>R. some purulent drainage to the dorsum of the L foot. left great toe calloused with distal tip missing,blackish area on tip,Left foot dorsum of skin nonhealing ulcer neuro: axo3 , nonfocal. DS: Data Data Completed and Pending Labs on day of discharge: Laboratory Results - last 24 hr 11/23/23 11/24/23 15:41 05:29 Creatinine 0.80 Estim Creat Clear Calc 81.0 Estimated GFR > 60 Random Vancomycin 13.3 L Preliminary micro results at discharge 11/21/23 15:19 Routine Culture - Preliminary Foot Left Proteus mirabilis Providencia rettgeri 11/21/23 15:19 Blood Culture - Preliminary Blood - Venous No growth after 48 hours. 11/21/23 14:41 Blood Culture - Preliminary Blood - Venous No growth after 48 hours. Imaging Chest x-ray: Radiologist's impression: ITS Impressions Foot X-Ray 11/21/23 14:25 IMPRESSION: Marked soft tissue swelling. No acute osseous process. Electronically signed by: Aren Tijerina MD 11/21/2023 04:58 PM EDT RP Foot X-Ray 11/21/23 14:25 IMPRESSION: Soft tissue ulceration overlying the first toe with osseous destructive changes of the distal tuft of the first distal phalanx consistent with osteomyelitis. Electronically signed by: Aren Tijerina MD 11/21/2023 04:58 PM EDT RP Duplex Scan Lower Extremity Artery 11/21/23 17:50 IMPRESSION: Occlusion of femoral-femoral bypass graft. Severe left infrainguinal disease as detailed above, including complete occlusion of the left superficial femoral artery. Given monophasic flow within the left common femoral artery, more proximal disease is suspected as well. Electronically signed by: Marcos Vidal MD 11/21/2023 07:44 PM EDT RP Venous Duplex 11/21/23 17:50 IMPRESSION: No evidence of deep venous thrombosis involving the left lower extremity. Electronically signed by: Wai Collado MD 11/21/2023 07:03 PM EDT RP Duplex Scan Lower Extremity Artery 11/22/23 11:37 IMPRESSION: There is occlusion of the femoral-femoral bypass and occlusion of the superficial femoral and popliteal arteries with minimal Doppler signal in the runoff vessels There is monophasic flow within the common femoral and profunda femoris arteries which may suggest inflow disease. Findings communicated with LORI Evangelista by Dr. Chirinos by telephone at 1227 hours. Electronically signed by: Marquez Chirinos MD 11/22/2023 12:34 PM EDT RP Aorta w/Runoff CTA 11/22/23 15:18 IMPRESSION: Vascular: *Occluded infrarenal abdominal aorta. Occluded iliac system except for reconstitution of the external iliac arteries at the origin of the left and right inferior epigastric arteries. Occluded femorofemoral bypass graft. *Bilateral occlusion of the femoral arteries. Bilateral reconstitution of flow within the distal popliteal arteries with bilateral diminutive 3-vessel flow crossing the ankles. *Marked diffuse calcific atherosclerosis is detailed further above. Findings include focal high-grade stenosis within the proximal superior mesenteric artery. Nonvascular: *Cholelithiasis. *Bilateral lower extremity subcutaneous edema most pronounced on the left. This critical result was discussed with Dr. Nii FERNANDO by telephone at 11/22/2023 11:34 PM EST and it was ascertained that the content and urgency of the report was understood at the time of direct communication. Electronically signed by: Carlos Donald MD 11/22/2023 11:35 PM EDT Discharge Plan Discharge Anticipated Discharge Date/Time: 11/24/23 10:48 Patient Disposition: Xfer Acute Care Hospital Discharge Diagnosis: foot osteo,pvd. Referrals: Norris Sinha MD [Primary Care Provider] - 1 Week Discharge Medications: New oxycodone 5 mg Tablet 5 mg PO Q6H PRN (Reason: Pain, Moderate(Pain Scale 4-6)) Qty: 15 0RF Rx Instructions: Partial Fill upon patient request. nicotine 21 mg/24 hr patch 24 hour 1 patch transdermal DAILY Qty: 1 0RF docusate sodium [Colace] 100 mg capsule 100 mg PO DAILY PRN (Reason: constipation) Qty: 20 0RF metronidazole in NaCl (iso-os) 500 mg/100 mL Piggyback 500 mg IV BID Qty: 1 0RF losartan 25 mg Tablet 25 mg PO DAILY Qty: 1 0RF Protocol: Hold for SBP< HOLD for SBP < : 90 furosemide 20 mg Tablet 20 mg PO DAILY Qty: 1 0RF Protocol: Hold for SBP< HOLD for SBP < : 90 levofloxacin in D5W 750 mg/150 mL Piggyback 750 mg IV Q24H Qty: 1 0RF metoprolol tartrate 25 mg Tablet 25 mg PO BID Qty: 1 0RF Protocol: Hold for SBP/HR < HOLD for SBP < : 90 HOLD for HR < : 60 atorvastatin 20 mg Tablet 20 mg PO BEDTIME Qty: 1 0RF Continued aspirin 81 mg Tablet,Delayed Release (Dr/Ec) 81 mg PO DAILY Discharge Orders: Discharge Order (Routine); Ordered 11/26/23 Ordered By: Johanna Schmitz Diet: Advance to usual diet Activity on Discharge: As tolerated Stand Alone Forms: Patient Portal Discharge page Print Language: Armenian Activity Restrictions/Additional Instructions: Topical Wound Care Recommendations: Bilateral Feet - Wash feet and legs with brian no rinse wash or routine soap and water when bathing. Elevate lower legs. To Left great toe apply Betadine daily. To Dorsal Left foot and wounds to toes apply Durafiber AG, cover with Dry gauze, Absorptive dressing, wrap. Change Daily. Care Plan Goals: Patient with a history of hypertension, PaD who is active smoker-came to the hospital because of acute osteomyelitis of left great toe bilateral cellulitis with sepsis : Patient had mild leukocytosis, x-ray left toe shows evidence of osteomyelitis, ESR 51 CRP is 13, blood and wound Cultures left foot sent,in addition patient 's arterial dupplex showed -occulsion of the fem-fembypass graft (2008-Dr Delarosa) with severe PAD-subsequently seen by vascular surgery andCTA aorta w runoff per vascular surgery and reivewed by vascular - Imaging demonstrates multilevel disease including an occlusion of the infrarenal aorta. Occluded iliac system. In addition the patient has an occluded femoral to femoral bypass. This appears to be chronic in nature. Vascular recommended-IV antibiotics for osteomyelitis currently and need vascular for further management of PAD for which require higher level of care to a tertiary care center. Above was also discussed with ID: Recommended levaquin 750 mg q24hr , flagyl 500 mg iv bid,his foot erythema and driange not improving-great toe remains with significant odor and blackish discoluration at tip (? necrosis ) . Consider ID evaluation also. Discussed with the [facility] vascular-patient will be going to [facility] for further vascular evaluation for above and possible needed vascular intervention for severe multi level the pad. Patient was strongly advised to abstain from smoking considering severe PAD .nicotein patch as needed. continue asa,lipid panel pending.HbA1C is 5.5. Lymphedema, has elevated bnp. Echo was done patient had 35-40% EF seen by cardiology-already on aspirin statin beta-chao, added losartan. Seems euvolemic currently,Continue Lasix 20 mg daily as needed. Consider cardiology evaluation . As per insurance is concerned he is referred to the financials year-he needs to sign up for medicare part B. Health Concerns: As above. Plan of Treatment: As above. Assessment: As above.
[2023-11-24 11:40] VITALS: BP 121/64; PULSE 83; RESP 18; TEMP 36.4; O2SAT 97
[2023-11-24 11:44] LABS: Cholesterol 149 mg/dL (<200); HDL Cholesterol 39 mg/dL (>40); LDL Cholesterol Calculated 90 mg/dL (<100); Triglycerides 102 mg/dL (<150)
[2023-11-24] MEDS: Ertapenem Sodium 1 GM in 0.9 % Sodium Chloride 50 ML IV (12:50)
--- NOTE | 2023-11-24 13:37 | MHC.CM.PN ---
Addendum entered by Sherita Pierre RN 11/24/23 14:34: Son will not be able to transport tomorrow. Patient aware. Addendum entered by Sherita Pierre RN 11/24/23 14:01: Anticipate dc tomorrow. IMM delivered. Original Note: Per MD patient not medically cleared for dc. Awaiting echo. Per [place], Medicare A will not cover BLS transport. Cost is ~$300 and patient will need to pay up front. Patient aware. Son may be able to dc if patient can xfer to car from w/c. CM will continue to follow.
[2023-11-24] MEDS: levoFLOXacin 750 MG TABLET PO (13:53)
[2023-11-24] MEDS: metroNIDAZOLE 500 MG TABLET PO (13:54)
--- NOTE | 2023-11-24 14:30 | P.PNIM_ITS ---
Subjective Subjective Date of Service: 11/24/23 Interval History: osteomyelitis left great toe. Review of Systems foot pain seems somewhat improving no fever or chills Physical Exam 2 Vital Signs: Vital Signs: Last Vital Signs Temp 97.5 F 11/24/23 11:40 Pulse 83 11/24/23 11:40 Resp 18 11/24/23 11:40 BP 121/64 11/24/23 11:40 Pulse Ox 97 11/24/23 11:40 O2 Del Method Room Air 11/24/23 11:40 BMI result Body Mass Index 24.0 Appearance: Alert.? Oriented X3. cvs: rrr, [id number] , no murmur res: clear to auscultation ,no rhonchii or wheezing abd: no rebound or guarding ,nt, bs present. ext pulses present , no cyanosis, scaling skin of the BLE with erythema and slight warmth L>R. some purulent drainage to the dorsum of the L foot. neuro: axo3 , nonfocal. Objective Data Active Medications Acetaminophen (Acetaminophen 325 Mg Tablet) 650 mg PO Q6H PRN PRN Reason: Pain, Mild (Pain Scale 1-3), fever or headache Last Admin: 11/24/23 03:04 Dose: 650 mg Documented By: MARIAA Amlodipine Besylate (Amlodipine Besylate 5 Mg Tablet) 5 mg PO DAILY [facility]; Protocol Last Admin: 11/24/23 07:40 Dose: 5 mg Documented By: QUINTEN Aspirin (Aspirin Enteric Coated 81 Mg Tablet.) 81 mg PO DAILY [facility] Last Admin: 11/24/23 07:40 Dose: 81 mg Documented By: QUINTEN Calcium Carbonate (Calcium Carbonate 750 Mg Tab.Chew) 750 mg PO Q4H PRN PRN Reason: Heartburn Enoxaparin Sodium (Enoxaparin Sodium 40 Mg/0.4 Ml Syringe) 40 mg SUBCUT Q24H [facility] Last Admin: 11/23/23 16:42 Dose: 40 mg Documented By: SOLANGE Furosemide (Furosemide 40 Mg Tablet) 40 mg PO DAILY [facility]; Protocol Last Admin: 11/24/23 07:40 Dose: 40 mg Documented By: QUINTEN Levofloxacin (Levofloxacin 750 Mg Tablet) 750 mg PO Q24H [facility] Last Admin: 11/24/23 13:53 Dose: 750 mg Documented By: QUINTEN Magnesium Hydroxide (Milk Of Magnesia 30 Ml Oral.Susp) 30 ml PO DAILY PRN PRN Reason: Constipation Melatonin (Melatonin 3 Mg Tablet) 6 mg PO BEDTIME PRN PRN Reason: Insomnia Metronidazole (Metronidazole 500 Mg Tablet) 500 mg PO Q12H [facility] Last Admin: 11/24/23 13:54 Dose: 500 mg Documented By: QUINTEN Morphine Sulfate (Morphine Sulfate 2 Mg/Ml Cartridge) 2 mg IVPUSH Q4H PRN; Protocol PRN Reason: Pain, Severe (Pain Scale 7-10) Oxycodone HCl (Oxycodone Hcl Immed Release 5 Mg Tablet) 5 mg PO Q6H PRN PRN Reason: Pain, Moderate(Pain Scale 4-6) Sodium Chloride (0.9 % Sodium Chloride Flush 3 Ml Syringe) 3 ml IVFLUSH QSHIFT [facility] Last Admin: 11/24/23 07:41 Dose: 3 ml Documented By: QUINTEN Labs 11/23/23 05:16 11/24/23 05:29 Labs: Laboratory Results - last 24 hr 11/23/23 11/24/23 15:41 05:29 Estim Creat Clear Calc 81.0 Estimated GFR > 60 Triglycerides 102 Cholesterol 149 LDL Cholesterol, Calc 90 HDL Cholesterol 39 L Random Vancomycin 13.3 L Microbiology Microbiology Results: Microbiology 11/21/23 15:19 Gram Stain - Final Foot Left Routine Culture - Preliminary Proteus mirabilis Providencia rettgeri 11/21/23 15:19 Blood Culture - Preliminary Blood - Venous No growth after 48 hours. 11/21/23 14:41 Blood Culture - Preliminary Blood - Venous No growth after 48 hours. Assessment and Plan (1) Lymphedema: Status: Acute (2) PAD (peripheral artery disease): Status: Acute (3) Osteomyelitis of great toe of left foot: Status: Acute Plan 78 year old male with history of htn not on medications who is a current 1ppd smoker (30+ pack year history) admitted for acute osteomyelitis L great toe and ble cellulitis Acute osteomyelitis L great toe and BLE cellulitis with sepsis leucocytosis flactuating (13.2 -10.5 -12.9) XR L great toe with evidence of osteomyelitis CRP 13, ESR 51 Arterial doppler BLE show occulsion of the fem-fembypass graft (2008-Dr Delarosa) with severe PAD> CTA aorta done-occlusion of bilateral femoral arteries with reconstitution of the distal popliteal arteries. blood cultures neg @24hrs plan: continue aspirin,added statin ldl is 90 (has pad and smoker ), pain management prn,wound culture reviewed blood cultures negative ID and vascular surgery input appreciated-continue antibiotics ,will need outpatient vascular followup for further management ,recomended iv antibiotics for osteomyelitis . PT eval-str. PAD-Arterial doppler BLE show occulsion of the fem-fembypass graft (2008-Dr Delarosa) with severe PAD> CTA aorta ordered by vasular surgery CTA aorta w runoff per vascular surgery- as above. vascular surgery input appreciated, continue asa BLE edema- seems consistent with lymphedema venous duplex negative for DVT Continue 40 mg p.o. Lasix acute hypokalemia-likely related to Lasix. improved HTN: continue amlodipine 5 mg daily Cigarette smoker-declines NRT, reports 1PPD last 20 years had quit for 20 years prior to this, but at least 30+ pack year history Acute normocytic anemia-above transfusion threshold, likely related to acute illness DVT prophylaxis- lovenox full code ongoing inpatient anthony stay due to acute osteomyelitis of the left great toe with cellulitis and sepsis requiring IV antibiotics, expert consultation, final cultures and probable long-term antibiotics with anticipated discharge to short- term rehab above is d/w with patient in detail length -patient currently wants to follow up outpatient with vascular and wanted to try antbiotics currently ,also understands that osteo might not improve with antibiotics considering poor circulation( nursing staff/case management was present during the conversation ). Quality Stroke Does the patient have a stroke diagnosis?: No VTE Prior VTE?: No VTE Risk Level:: Medical - moderate - high VTE Device Contraindication: Treatment Not Indicated VTE Drug Contraindication: N/A - Med Ordered
[2023-11-24 15:01] LABS: Vancomycin Random 18.9 mcg/mL (15-20)
[2023-11-24 15:14] VITALS: BP 149/83; PULSE 114; RESP 16; TEMP 36.5; O2SAT 94
[2023-11-24] MEDS: Enoxaparin Sodium 40 MG/0.4 ML SYRINGE SUBCUT (16:55)
--- NOTE | 2023-11-24 17:00 | CA_ITS ---
Transthoracic Echocardiogram Patient (Last, First, Middle): Aniket Lieberman G Gender: Male Date of : 1945 Age: 78 Procedure Date: 11/24/2023 Procedure Type: Transthoracic Echocardiogram Location: ER Height: 180.34 cm Weight: 77.57 kg BSA: 1.97 m2 Heart Rate: 96 bpm BP: 121 / 64 mmHg Visual Merchandising Director: Referring MD: Johanna Schmitz MD Symptoms: ?chf Study Quality: Adequate ECG Rhythm: Sinus Conclusions: - Normal left ventricular cavity size. There is mildly increased left ventricular wall thickness. The left ventricular systolic function is mild to moderately decreased. The visually estimated ejection fraction is between 35-40%. - Elevated filling pressures. - The anterolateral wall and inferolateral wall are hypokinetic. - Normal right ventricular cavity size and systolic function. - The left atrium is severely dilated. Findings Left Ventricle Normal left ventricular cavity size. There is mildly increased left ventricular wall thickness. The left ventricular systolic function is mild to moderately decreased. The visually estimated ejection fraction is between 35-40%. There is evidence of regional wall motion abnormalities. Abnormal diastolic function is noted. Spectral Doppler is indicative of an impaired relaxation filling pattern. Elevated filling pressures. Wall Motion Rest Echo Findings The anterolateral wall and inferolateral wall are hypokinetic. Right Ventricle Normal right ventricular cavity size and systolic function. Atria The left atrium is severely dilated. Aortic Valve The aortic valve was not well visualized. There is no aortic valve stenosis. There is no aortic valve regurgitation. Mitral Valve The mitral valve appears normal. There is trace mitral valve regurgitation. There is no mitral valve stenosis. Pulmonic Valve The pulmonic valve was not well visualized. Tricuspid Valve Normal tricuspid valve structure. There is trace tricuspid valve regurgitation. Normal right atrial pressure. There is no evidence of pulmonary hypertension. Great Vessels There is mild dilatation of the ascending aorta measuring 3.60 cm. Venous The inferior vena cava is normal in size and collapses greater than 50% with inspiration. Pericardium/Pleural There is no evidence of pericardial effusion. Measurements 2D Linear Measurements IVSd: 1.25 0.6-0.9/0.6-1.0 cm LVIDd: 5.66 3.9-5.3/4.2-5.9 cm LVIDd Index: 2.87 2.4-3.2/2.2-3.1 cm/m2 LVIDs: 4.81 2.0-3.6 cm LVPWd: 1.21 0.7-1.1 cm LA Diam: 4.20 2.7-3.8/3.0-4.0 cm LAIDs Index: 2.13 1.5-2.3 cm/m2 LV Mass: 368.23 67-162/88-224 g LV Mass Index: 186.92 43-95/49-115 g/m2 LVOT Diam: 2.40 3.0+(-)1.3 cm 2D Systolic Function EF 4C: 27.30 >55% EF 2C: 16.70 >55% EF BiP: 20.40 >55% Mitral Valve MV Pk E: 1.12 MV PK A: 1.17 MV Decel Time: 117.00 E/A: 1.00 E'Lateral: 5.00 E'Medial: 3.26 E/E' Med: 34.40 E/E' Lat: 22.40 PHT: 34.00 MVA PHT: 6.47 Decel Clayton: 9.59 Aortic Valve AoV Pk Alberto: 1.60 AoV Pk Grad: 10.00 HENRIQUE: 2.56 LVOT LVOT Pk Alberto: 0.95 LVOT Mn Alberto: 0.54 LVOT VTI: 0.17 LVOT Pk Grad: 4.00 LVOT Mn Grad: 1.00 LVOT Diam: 2.40 LVOT Area: 4.52 Diastolic Function MV Pk E: 1.12 MV Pk A: 1.17 E/A: 1.00 E'Medial: 3.26 E/E' Med: 34.40 E' Laterial: 5.00 E/E' Lat: 22.40 Right Ventricle TAPSE (mm): 30.00 TVS' Alberto: 12.10 Tricuspid Valve TR Pk Alberto: 2.84 TR Pk Grad: 32.00 RA Press: 3.00 RVSP: 35.00 Great Vessels Aorta Sinus of Valsalva: 3.70 2.0-3.5 cm Ao Asc: 3.60 2.1-3.4 cm Pulmonary Valve PV Pk Alberto: 1.06 Peak PV Grad: 4.00 Updated in Other Vendor System with Status of Final Hamzah North MD electronically signed on 11/25/2023 8:57:39 PM with status of Final
[2023-11-24 19:21] VITALS: BP 140/71; PULSE 96; RESP 18; TEMP 36.8; O2SAT 96
[2023-11-24] MEDS: Atorvastatin Calcium 20 MG TABLET PO (20:19)
[2023-11-24 23:47] VITALS: BP 152/96; PULSE 86; RESP 16; TEMP 36.3; O2SAT 99
[2023-11-25] MEDS: 0.9 % Sodium Chloride Flush 3 ML SYRINGE IVFLUSH (00:49)
[2023-11-25] MEDS: metroNIDAZOLE 500 MG TABLET PO ×2 (01:01→12:56)
[2023-11-25 03:56] VITALS: BP 155/61; PULSE 80; RESP 16; TEMP 36.2; O2SAT 97
[2023-11-25] MEDS: Aspirin Enteric Coated 81 MG TABLET.DR PO (07:33)
[2023-11-25] MEDS: amLODIPine Besylate 5 MG TABLET PO (07:34)
[2023-11-25] MEDS: Furosemide 40 MG TABLET PO (07:34)
[2023-11-25] MEDS: Acetaminophen 325 MG TABLET 650 MG PO ×3 (07:35→21:39)
[2023-11-25 07:59] VITALS: BP 135/84; PULSE 86; RESP 16; TEMP 36.4; O2SAT 97
[2023-11-25 11:35] VITALS: BP 135/60; PULSE 89; RESP 16; TEMP 36.6; O2SAT 97
[2023-11-25] MEDS: levoFLOXacin 750 MG TABLET PO (12:56)
--- NOTE | 2023-11-25 14:40 | P.PNIM_ITS ---
Subjective Subjective Date of Service: 11/26/23 Interval History: leg edema foot osteo Review of Systems foot seems similar denies new c/o Physical Exam 2 Vital Signs: Vital Signs: Last Vital Signs Temp 97.8 F 11/25/23 11:35 Pulse 89 11/25/23 11:35 Resp 16 11/25/23 11:35 BP 135/60 11/25/23 11:35 Pulse Ox 97 11/25/23 11:35 O2 Del Method Room Air 11/25/23 11:35 BMI result Body Mass Index 24.0 Appearance: Alert.? Oriented X3. cvs: rrr, [id number] , no murmur res: clear to auscultation ,no rhonchii or wheezing abd: no rebound or guarding ,nt, bs present. ext pulses present , no cyanosis, scaling skin of the BLE with erythema and slight warmth L>R,Left foot dorsum of skin nonhealing ulcer. neuro: axo3 , nonfocal. Objective Data Active Medications Acetaminophen (Acetaminophen 325 Mg Tablet) 650 mg PO Q6H PRN PRN Reason: Pain, Mild (Pain Scale 1-3), fever or headache Last Admin: 11/25/23 07:35 Dose: 650 mg Documented By: QUINTEN Amlodipine Besylate (Amlodipine Besylate 5 Mg Tablet) 5 mg PO DAILY [facility]; Protocol Last Admin: 11/25/23 07:34 Dose: 5 mg Documented By: QUINTEN Aspirin (Aspirin Enteric Coated 81 Mg Tablet.) 81 mg PO DAILY [facility] Last Admin: 11/25/23 07:33 Dose: 81 mg Documented By: QUINTEN Atorvastatin Calcium (Atorvastatin Calcium 20 Mg Tablet) 20 mg PO BEDTIME [facility] Last Admin: 11/24/23 20:19 Dose: 20 mg Documented By: HERMINIO Calcium Carbonate (Calcium Carbonate 750 Mg Tab.Chew) 750 mg PO Q4H PRN PRN Reason: Heartburn Enoxaparin Sodium (Enoxaparin Sodium 40 Mg/0.4 Ml Syringe) 40 mg SUBCUT Q24H [facility] Last Admin: 11/24/23 16:55 Dose: 40 mg Documented By: QUINTEN Furosemide (Furosemide 40 Mg Tablet) 40 mg PO DAILY [facility]; Protocol Last Admin: 11/25/23 07:34 Dose: 40 mg Documented By: QUINTEN Levofloxacin (Levofloxacin 750 Mg Tablet) 750 mg PO Q24H [facility] Last Admin: 11/25/23 12:56 Dose: 750 mg Documented By: QUINTEN Magnesium Hydroxide (Milk Of Magnesia 30 Ml Oral.Susp) 30 ml PO DAILY PRN PRN Reason: Constipation Melatonin (Melatonin 3 Mg Tablet) 6 mg PO BEDTIME PRN PRN Reason: Insomnia Metronidazole (Metronidazole 500 Mg Tablet) 500 mg PO Q12H [facility] Last Admin: 11/25/23 12:56 Dose: 500 mg Documented By: QUINTEN Morphine Sulfate (Morphine Sulfate 2 Mg/Ml Cartridge) 2 mg IVPUSH Q4H PRN; Protocol PRN Reason: Pain, Severe (Pain Scale 7-10) Oxycodone HCl (Oxycodone Hcl Immed Release 5 Mg Tablet) 5 mg PO Q6H PRN PRN Reason: Pain, Moderate(Pain Scale 4-6) Sodium Chloride (0.9 % Sodium Chloride Flush 3 Ml Syringe) 3 ml IVFLUSH QSHIFT [facility] Last Admin: 11/25/23 07:34 Dose: Not Given Documented By: QUINTEN Non-Admin Reason: no access Labs 11/23/23 05:16 11/24/23 05:29 Labs: Laboratory Results - last 24 hr 11/24/23 14:39 Random Vancomycin 18.9 Microbiology Microbiology Results: Microbiology 11/21/23 15:19 Gram Stain - Final Foot Left Routine Culture - Final Proteus mirabilis Providencia rettgeri Staphylococcus aureus Assessment and Plan (1) Lymphedema: Status: Acute (2) PAD (peripheral artery disease): Status: Acute (3) Osteomyelitis of great toe of left foot: Status: Acute Plan 78 year old male with history of htn not on medications who is a current 1ppd smoker (30+ pack year history) admitted for acute osteomyelitis L great toe and ble cellulitis Acute osteomyelitis L great toe and BLE cellulitis with sepsis leucocytosis flactuating (13.2 -10.5 -12.9) XR L great toe with evidence of osteomyelitis CRP 13, ESR 51 Arterial doppler BLE show occulsion of the fem-fembypass graft (2008-Dr Delarosa) with severe PAD> CTA aorta done-occlusion of bilateral femoral arteries with reconstitution of the distal popliteal arteries. blood cultures neg @24hrs plan: continue aspirin,added statin ldl is 90 (has pad and smoker ), pain management prn,wound culture reviewed blood cultures negative wound culture -came back mssa in addition to yesterday, proteus mirabillis/provedensia ID and vascular surgery input appreciated-continue antibiotics ,will need outpatient vascular followup for further management ,recomended iv antibiotics for osteomyelitis . PT eval-str. PAD-Arterial doppler BLE show occulsion of the fem-fembypass graft (2008-Dr Delarosa) with severe PAD> CTA aorta ordered by vasular surgery CTA aorta w runoff per vascular surgery- as above. vascular surgery input appreciated, continue asa BLE edema- seems consistent with lymphedema venous duplex negative for DVT Continue 40 mg p.o. Lasix acute hypokalemia-likely related to Lasix. improved HTN: continue amlodipine 5 mg daily Cigarette smoker-declines NRT, reports 1PPD last 20 years had quit for 20 years prior to this, but at least 30+ pack year history Acute normocytic anemia-above transfusion threshold, likely related to acute illness DVT prophylaxis- lovenox full code ongoing inpatient anthony stay due to acute osteomyelitis of the left great toe with cellulitis and sepsis requiring IV antibiotics, expert consultation, final cultures and probable long-term antibiotics with anticipated discharge to short- term rehab above is d/w with patient in detail length -since his osteomyelitis and infection is not improving will benefit going to tertiary care center for management of his severePAD. Quality Stroke Does the patient have a stroke diagnosis?: No VTE Prior VTE?: No VTE Risk Level:: Medical - moderate - high VTE Device Contraindication: Treatment Not Indicated VTE Drug Contraindication: N/A - Med Ordered
[2023-11-25 15:09] VITALS: BP 151/65; PULSE 83; RESP 20; TEMP 36; O2SAT 98
[2023-11-25] MEDS: Enoxaparin Sodium 40 MG/0.4 ML SYRINGE SUBCUT (16:17)
[2023-11-25 20:00] VITALS: BP 128/59; PULSE 93; RESP 16; TEMP 36.4; O2SAT 96
[2023-11-25] MEDS: Atorvastatin Calcium 20 MG TABLET PO (20:05)
[2023-11-25] MEDS: Melatonin 3 MG TABLET 6 MG PO (21:39)
[2023-11-25] MEDS: oxyCODONE HCl Immed Release 5 MG TABLET PO (21:40)
[2023-11-25 23:36] VITALS: BP 155/71; PULSE 84; RESP 16; TEMP 36.4; O2SAT 94
[2023-11-26] VITALS (7 sets, daily range): BP systolic 144–158; BP diastolic 66–80; PULSE 15–91; RESP 15–20; TEMP 36–36.6; O2SAT 96–98
--- NOTE | 2023-11-26 | ECG_ITS ---
Test Reason : QTC CHECK Blood Pressure : / mmHG Vent. Rate : 090 BPM Atrial Rate : 090 BPM P-R Int : 170 ms QRS Dur : 112 ms QT Int : 382 ms P-R-T Axes : 033 008 121 degrees QTc Int : 467 ms Sinus rhythm with Premature atrial complexes with Aberrant conduction Possible Left atrial enlargement Left ventricular hypertrophy with repolarization abnormality ( Baxter product ) Cannot rule out Inferior infarct (cited on or before 24-NOV-2023) Abnormal ECG When compared with ECG of 24-NOV-2023 12:27, Aberrant conduction is now Present Non-specific change in ST segment in Inferior leads T wave inversion no longer evident in Inferior leads T wave inversion no longer evident in Anterior leads Referred By: Johanna Schmitz Electronically Signed By:JOHN CRUMP
[2023-11-26] MEDS: metroNIDAZOLE 500 MG TABLET PO (02:08)
[2023-11-26] MEDS: Acetaminophen 325 MG TABLET 650 MG PO (06:01)
[2023-11-26] MEDS: oxyCODONE HCl Immed Release 5 MG TABLET PO (06:02)
--- NOTE | 2023-11-26 08:33 | PM.CNCAR ---
History of Present Illness History of Present Illness Date of Service: 11/26/23 Requesting physician: Johanna Schmitz Chief complaint: OM L foot, cellulitis, cardiomyopathy Narrative: [age] year gentleman with peripheral vascular disease and osteomyelitis of the great toe of the left foot. He has bilateral lower extremity swelling left more than right side. He had echocardiography performed which is showing EF of 35-40% with lateral wall motion abnormality. He is a vasculopath. He is denying any chest pain or shortness of breath. Blood pressure is elevated. He is on antibiotics and being managed for osteomyelitis by the medicine team along with surgery. No orthopnea or PND. [facility] Past Medical History Medical History Cigarette smoker HTN (hypertension) Family History Family history: reviewed and not pertinent Social History Social History Household Members: Family Housing: House Do you presently have visiting nurse or other home services: No Patient Tobacco Use Status: Current everyday Tobacco user Tobacco use type: Cigarette Cigarettes Per Day: 20 Years Smoked: 50 Smoked in Last 30 Days: Yes e-Cigarette/Vaping Use: Currently Using Patient Interested in Nicotine Replacement: No Use of substances other than those prescribed or required for medical reasons: No Currently Displaying Signs/Symptoms of Drug Intoxication Withdrawal: No Have you been hit, kicked, punched, or otherwise hurt by someone within the past year? If so, by whom?: No Do you feel safe in your current relationship?: No Is there a partner from a previous relationship who is making you feel unsafe now?: No Are you made to feel afraid or neglected: No Advance Directives: No Advance Directives Information Provided: Yes Do you have a plan to hurt others: No Plan Recently lost weight without trying: Unsure Nutrition Risks: Poor intake 0-25% >4 days Poor oral hygiene: Yes service: No Meds Allergies Allergy/AdvReac Type Severity Reaction Status Date / Time No Known Allergies Allergy Mild NONE Verified 11/21/23 14:26 Active Medications: Current Medications Acetaminophen (Acetaminophen 325 Mg Tablet) 650 mg PO Q6H PRN PRN Reason: Pain, Mild (Pain Scale 1-3), fever or headache Last Admin: 11/26/23 06:01 Dose: 650 mg Aspirin (Aspirin Enteric Coated 81 Mg Tablet.Dr) 81 mg PO DAILY [facility] Last Admin: 11/25/23 07:33 Dose: 81 mg Atorvastatin Calcium (Atorvastatin Calcium 20 Mg Tablet) 20 mg PO BEDTIME [facility] Last Admin: 11/25/23 20:05 Dose: 20 mg Calcium Carbonate (Calcium Carbonate 750 Mg Tab.Chew) 750 mg PO Q4H PRN PRN Reason: Heartburn Enoxaparin Sodium (Enoxaparin Sodium 40 Mg/0.4 Ml Syringe) 40 mg SUBCUT Q24H [facility] Last Admin: 11/25/23 16:17 Dose: 40 mg Furosemide (Furosemide 40 Mg Tablet) 40 mg PO DAILY [facility]; Protocol Last Admin: 11/25/23 07:34 Dose: 40 mg Levofloxacin (Levofloxacin 750 Mg Tablet) 750 mg PO Q24H [facility] Last Admin: 11/25/23 12:56 Dose: 750 mg Magnesium Hydroxide (Milk Of Magnesia 30 Ml Oral.Susp) 30 ml PO DAILY PRN PRN Reason: Constipation Melatonin (Melatonin 3 Mg Tablet) 6 mg PO BEDTIME PRN PRN Reason: Insomnia Last Admin: 11/25/23 21:39 Dose: 6 mg Metoprolol Tartrate (Metoprolol Tartrate 25 Mg Tablet) 25 mg PO BID [facility]; Protocol Metronidazole (Metronidazole 500 Mg Tablet) 500 mg PO Q12H [facility] Last Admin: 11/26/23 02:08 Dose: 500 mg Morphine Sulfate (Morphine Sulfate 2 Mg/Ml Cartridge) 2 mg IVPUSH Q4H PRN; Protocol PRN Reason: Pain, Severe (Pain Scale 7-10) Oxycodone HCl (Oxycodone Hcl Immed Release 5 Mg Tablet) 5 mg PO Q6H PRN PRN Reason: Pain, Moderate(Pain Scale 4-6) Last Admin: 11/26/23 06:02 Dose: 5 mg Sodium Chloride (0.9 % Sodium Chloride Flush 3 Ml Syringe) 3 ml IVFLUSH QSHIFT [facility] Last Admin: 11/26/23 00:45 Dose: Not Given Home Medications ?Medication ?Instructions ?Recorded ?Confirmed ?Last Taken ?Type aspirin 81 mg tablet,delayed 81 mg PO DAILY 11/21/23 11/21/23 11/20/23 History release Physical Exam Vital Signs: Vital Signs: Last Vital Signs Temp 97 F 11/26/23 06:50 Pulse 87 11/26/23 07:24 Resp 16 11/26/23 06:50 BP 158/80 H 11/26/23 07:24 Pulse Ox 96 11/26/23 07:24 O2 Del Method Room Air 11/26/23 06:50 BMI result Body Mass Index 24.0 GENERAL APPEARANCE: in no acute distress. NECK: no carotid bruit, no jugular venous distention. SKIN: no suspicious lesions, warm and dry. HEART: no murmurs, regular rate and rhythm. LUNGS: clear to auscultation bilaterally. ABDOMEN: soft, nontender. EXTREMITIES: Left side 1 to 2+ edema. Left foot dressed. PERIPHERAL PULSES: Equal NEUROLOGIC: No gross deficits, AAO X 3 Objective Labs and Meds 11/23/23 05:16 11/24/23 05:29 Assessment and Plan (1) Osteomyelitis of great toe of left foot: Status: Acute (2) PAD (peripheral artery disease): Status: Acute (3) Cardiomyopathy: Status: Acute Plan 78-year-old gentleman with peripheral vascular disease with CT scan showing occluded infrarenal abdominal aorta, occluded iliacs and occluded fem-fem bypass graft. He has left foot osteomyelitis. He also has cellulitis in the right foot and edema left more than right side. No DVT has been noticed. Clinically he is not in heart failure. Echocardiography did show cardiomyopathy with EF 35-40% and I suspect that he has underlying ischemic cardiomyopathy. He does not have any significant symptoms though. Advise blood pressure control and addition of guideline directed medical therapy. We will started adding losartan 25 mg daily. If he tolerates this and electrolytes are stable then spironolactone can be added and potassium can be monitored closely. We will follow along with you. Thank you for allowing me to participate in the care of your patient. Please feel free to contact me if you have any questions. Procedures Date of Service Date of Service: 11/26/23
[2023-11-26] MEDS: Furosemide 40 MG TABLET PO (08:42)
[2023-11-26] MEDS: Metoprolol Tartrate 25 MG TABLET PO (08:43)
[2023-11-26] MEDS: Aspirin Enteric Coated 81 MG TABLET.DR PO (08:43)
--- NOTE | 2023-11-26 10:50 | MHC.CLN ---
F/U DIET=2 GRAM SODIUM. ENSURE BID PROVIDES ADDITIONAL 700 KCALS, 40 G PROTEIN. INTAKE AT MEALS APPEARS TO BE USUALLY 100%. NO ADDITIONAL NUTRITION INTERVENTIONS AT THIS TIME.
--- NOTE | 2023-11-26 10:54 | HO.WOUND ---
Wound Consult: Follow up 78yr old?male admitted to [facility] on 11/21/23 - See progress notes and H&P for detailed history.? Wound consult follow up for Bilateral Lower Leg.? Patient agreeable to assessment and photo documentation.? Patients left foot dressing removed - debris and hair remain matted to foot - patient not able to tolerate cleansing due to pain. Will recommend continue washing to encourage better assessment. See Dr. Kennedy note for vascular assessment - Dr. Kennedy deferred topical recommendations to inpt wound care nurse. Patient has known PVD and per Dr. Kennedy note suspected Lymphedema. Of note the patient has pain with elevation and and refused elevation given this pain and discomfort which appears to be significantly impacting this left foot as the wound bed and entire foot has maceration noted. TT to Dr. Schmitz to make aware of overall no improvement and worsening maceration - will defer to further workup and continue provider evaluation by provider. Left Foot 11/22/23 Left Foot 11/26/23 Etiology: ??Venous Wounds and suspect arterial wound - given current documentation of blockage Wound Bed: No improvement noted - Great toe is mal odorous and dry black necrotic tissue Worsening between toes and dorsal foot is moist slough with significant maceration noted. Drainage / Odor: foul odor noted - yellow drainage large amount noted Edges: ? irregular Juany wound: ?redness, swelling and pitting edema - no PP per direct care team - providers aware Pain: patient reports some pain with cleansing - unable to tolerate total cleansing. Significant pain with elevation noted. Goals of Treatment: ? Betadine to great toe to keep dry and stable, Dorsal foot with Alginate for moisture management. Recommend Elevation - patient can not tolerate elevation per statement of pain Right Foot - no open wound noted at this time swelling noted and redness noted. Will monitor for wound development and or drainage. No new topical recommendations needed. Recommendations: 1. Off Load all bony prominences with use of pillows and heel boots if needed.? Apply Preventative foams where needed. ? 2. Monitor for incontinence and moisture control, use barrier creams when needed for prevention and treatment. 3. Provide adequate and supplemental nutrition.? 4. When applicable maintain blood glucose levels per Providers order. 5. Bilateral Feet - Wash feet and legs with brian no rinse wash. Elevate lower legs. To Left great toe apply Betadine daily. To Dorsal Left foot and wounds to toes apply Durafiber AG, cover with Dry gauze, Absorptive dressing, wrap. Change Daily. Re-consult wound care Nurse for wound deterioration or wound changes.
--- NOTE | 2023-11-26 11:22 | MHC.CM.PN ---
Addendum entered by Sherita Pierre RN 11/26/23 14:23: Per xfer to [facility] Original Note: Per MD rounds patient not medically cleared for dc. May require xfer to another hospital. CM will continue to follow.
[2023-11-26 12:04] LABS: Troponin-I High Sensitivity 155.1 ng/L (<3.5-35.0)
[2023-11-26] MEDS: metroNIDAZOLE/NS 500 MG/100 ML PIGGYBACK 100 MG IV (12:27)
[2023-11-26] MEDS: levoFLOXacin/D5W 750 MG/150 ML PIGGYBACK 100 MG IV (13:37)
--- NOTE | 2023-11-26 14:52 | HO.PM.IMPN ---
Subjective Subjective Date of Service: 11/26/23 Interval History: PAD, Osteo Review of Systems seems foot area has discharge big toe tip area discoluration Physical Exam Vital Signs: Vital Signs: Last Vital Signs Temp 98 F 11/26/23 11:37 Pulse 15 L 11/26/23 11:37 Resp 15 11/26/23 11:37 BP 158/77 H 11/26/23 11:37 Pulse Ox 98 11/26/23 11:37 O2 Del Method Room Air 11/26/23 11:37 BMI result Body Mass Index 24.0 Appearance: Alert.? Oriented X3. cvs: rrr, [id number] , no murmur res: clear to auscultation ,no rhonchii or wheezing abd: no rebound or guarding ,nt, bs present. ext pulses present , no cyanosis, scaling skin of the BLE with erythema and slight warmth L>R,Left foot dorsum of skin nonhealing ulcer. neuro: axo3 , nonfocal. Objective Data Active Medications Acetaminophen (Acetaminophen 325 Mg Tablet) 650 mg PO Q6H PRN PRN Reason: Pain, Mild (Pain Scale 1-3), fever or headache Last Admin: 11/26/23 06:01 Dose: 650 mg Documented By: HERMINIO Aspirin (Aspirin Enteric Coated 81 Mg Tablet.) 81 mg PO DAILY [facility] Last Admin: 11/26/23 08:43 Dose: 81 mg Documented By: BELKIS Atorvastatin Calcium (Atorvastatin Calcium 20 Mg Tablet) 20 mg PO BEDTIME [facility] Last Admin: 11/25/23 20:05 Dose: 20 mg Documented By: HERMINIO Calcium Carbonate (Calcium Carbonate 750 Mg Tab.Chew) 750 mg PO Q4H PRN PRN Reason: Heartburn Enoxaparin Sodium (Enoxaparin Sodium 40 Mg/0.4 Ml Syringe) 40 mg SUBCUT Q24H [facility] Last Admin: 11/25/23 16:17 Dose: 40 mg Documented By: QUINTEN Furosemide (Furosemide 20 Mg Tablet) 20 mg PO DAILY [facility]; Protocol Levofloxacin (Levaquin) 750 mg in 150 mls @ 100 mls/hr IV Q24H [facility] Last Admin: 11/26/23 13:37 Dose: 100 mls/hr Documented By: BELKIS Metronidazole (Flagyl) 500 mg in 100 mls @ 100 mls/hr IV BID [facility] Last Infusion: 11/26/23 13:37 Dose: Infused Documented By: BELKIS Losartan Potassium (Losartan Potassium 25 Mg Tablet) 25 mg PO DAILY [facility]; Protocol Magnesium Hydroxide (Milk Of Magnesia 30 Ml Oral.Susp) 30 ml PO DAILY PRN PRN Reason: Constipation Melatonin (Melatonin 3 Mg Tablet) 6 mg PO BEDTIME PRN PRN Reason: Insomnia Last Admin: 11/25/23 21:39 Dose: 6 mg Documented By: HERMINIO Metoprolol Tartrate (Metoprolol Tartrate 25 Mg Tablet) 25 mg PO BID [facility]; Protocol Last Admin: 11/26/23 08:43 Dose: 25 mg Documented By: BELKIS Morphine Sulfate (Morphine Sulfate 2 Mg/Ml Cartridge) 2 mg IVPUSH Q4H PRN; Protocol PRN Reason: Pain, Severe (Pain Scale 7-10) Oxycodone HCl (Oxycodone Hcl Immed Release 5 Mg Tablet) 5 mg PO Q6H PRN PRN Reason: Pain, Moderate(Pain Scale 4-6) Last Admin: 11/26/23 06:02 Dose: 5 mg Documented By: HERMINIO Sodium Chloride (0.9 % Sodium Chloride Flush 3 Ml Syringe) 3 ml IVFLUSH QSHIFT [facility] Last Admin: 11/26/23 08:44 Dose: Not Given Documented By: BELKIS Non-Admin Reason: No Access Labs 11/23/23 05:16 11/24/23 05:29 Labs: Laboratory Results - last 24 hr 11/26/23 10:25 Troponin I High Sens 155.1 H* Microbiology Microbiology Results: Microbiology 11/21/23 15:19 Gram Stain - Final Foot Left Routine Culture - Final Proteus mirabilis Providencia rettgeri Staphylococcus aureus Assessment and Plan (1) Lymphedema: Status: Acute (2) PAD (peripheral artery disease): Status: Acute (3) Osteomyelitis of great toe of left foot: Status: Acute Plan 78 year old male with history of htn not on medications who is a current 1ppd smoker (30+ pack year history) admitted for acute osteomyelitis L great toe and ble cellulitis Acute osteomyelitis L great toe and BLE cellulitis with sepsis leucocytosis flactuating (13.2 -10.5 -12.9) XR L great toe with evidence of osteomyelitis CRP 13, ESR 51 Arterial doppler BLE show occulsion of the fem-fembypass graft (2008-Dr Delarosa) with severe PAD> CTA aorta done-occlusion of bilateral femoral arteries with reconstitution of the distal popliteal arteries. blood cultures neg @24hrs plan: continue aspirin,added statin ldl is 90 (has pad and smoker ), pain management prn,wound culture reviewed blood cultures negative wound culture -came back mssa in addition to yesterday, proteus mirabillis/provedensia ID and vascular surgery input appreciated-continue antibiotics ,will need outpatient vascular followup for further management ,recomended iv antibiotics for osteomyelitis . PT eval-str. PAD-Arterial doppler BLE show occulsion of the fem-fembypass graft (2008-Dr Delarosa) with severe PAD> CTA aorta ordered by vasular surgery CTA aorta w runoff per vascular surgery- as above. vascular surgery input appreciated, continue asa BLE edema- seems consistent with lymphedema venous duplex negative for DVT Continue 40 mg p.o. Lasix acute hypokalemia-likely related to Lasix. improved HTN: continue amlodipine 5 mg daily Cigarette smoker-declines NRT, reports 1PPD last 20 years had quit for 20 years prior to this, but at least 30+ pack year history Acute normocytic anemia-above transfusion threshold, likely related to acute illness DVT prophylaxis- lovenox full code ongoing inpatient anthony stay due to acute osteomyelitis of the left great toe with cellulitis and sepsis requiring IV antibiotics, expert consultation, final cultures and probable long-term antibiotics with anticipated discharge to short-term rehab above is d/w with patient in detail length -since his osteomyelitis and infection is not improving will benefit going to tertiary care center for management of his severePAD. Quality Stroke Does the patient have a stroke diagnosis?: No VTE Prior VTE?: No VTE Risk Level:: Medical - moderate - high VTE Device Contraindication: Treatment Not Indicated VTE Drug Contraindication: N/A - Med Ordered
--- NOTE | 2023-11-26 15:00 | PC.NURSE ---
Call placed to [facility] for report, however RN was busy at the moment, states they will call back.
== END 2023-11-26 15:37 | disposition short-term general hospital (02) | DRG 872 ==
LOC: HO.ED 16:25 → HO.EDOVER 17:05 → HO.S3 11-22 05:09
PROVIDERS: Internal Medicine Cardiovascular Disease; Nurse Practitioner Family; Admitting Provider Physician Assistant; Emergency Provider Emergency Medicine Emergency Medical Services; PCP Internal Medicine; Visit Provider Internal Medicine
DX: A41.9 Sepsis, unspecified organism (principal); T82.392A Other mechanical complication of femoral arterial graft (bypass), initial encounter; I42.9 Cardiomyopathy, unspecified; I70.76 Atherosclerosis of other type of bypass graft(s) of the extremities with gangrene; L03.115 Cellulitis of right lower limb; L03.116 Cellulitis of left lower limb; M86.172 Other acute osteomyelitis, left ankle and foot; D64.9 Anemia, unspecified; E87.6 Hypokalemia; I89.0 Lymphedema, not elsewhere classified; F17.210 Nicotine dependence, cigarettes, uncomplicated; Z41.9 Encounter for procedure for purposes other than remedying health state, unspecified; I10 Essential (primary) hypertension; Z71.6 Tobacco abuse counseling; Z79.82 Long term (current) use of aspirin; Z79.899 Other long term (current) drug therapy
CPT/HCPCS: 36415; 73630; 75635; 80048; 80053; 80061; 80202; 82565; 83036; 83605; 83880; 84484; 85025; 85652; 86140; 87040; 87070; 87077; 87186; 87205; 92950; 93005; 93306; 93926; 93971; 97110; 97116; 97162; 99285; J1335; J1650; J1836; J1940; J1956; J2185; J2543; J3370; J3371; Q9957; Q9967

== ENCOUNTER 2023-11-21 16:52 | Outpatient (BNV) | payer SELFPAY | END 2023-11-24 17:00 | PROVIDERS: Admitting Provider Physician Assistant; Emergency Provider Emergency Medicine Emergency Medical Services; PCP Internal Medicine; Visit Provider Internal Medicine Cardiovascular Disease | DX: I51.7 Cardiomegaly (principal); R93.1 Abnormal findings on diagnostic imaging of heart and coronary circulation | CPT/HCPCS: 93306 ==

== ENCOUNTER → 2023-11-21 16:52 | Outpatient (BNV) | payer SELFPAY | PROVIDERS: Admitting Provider Physician Assistant; Emergency Provider Emergency Medicine Emergency Medical Services; PCP Internal Medicine; Visit Provider Surgery Vascular Surgery | DX: I73.9 Peripheral vascular disease, unspecified (principal); I89.0 Lymphedema, not elsewhere classified | CPT/HCPCS: 99222; 99232 ==

== ENCOUNTER → 2023-11-21 16:52 | Outpatient (BNV) | payer SELFPAY | PROVIDERS: Admitting Provider Physician Assistant; Emergency Provider Emergency Medicine Emergency Medical Services; PCP Internal Medicine; Visit Provider Physician Assistant | DX: I89.0 Lymphedema, not elsewhere classified (principal); I73.9 Peripheral vascular disease, unspecified; M86.9 Osteomyelitis, unspecified; E11.621 Type 2 diabetes mellitus with foot ulcer | CPT/HCPCS: 99223; 99231; 99232; 99239; 99499 ==

== ENCOUNTER → 2023-11-21 16:52 | Outpatient (BNV) | payer SELFPAY | PROVIDERS: Admitting Provider Physician Assistant; Emergency Provider Emergency Medicine Emergency Medical Services; PCP Internal Medicine; Visit Provider Internal Medicine | DX: I89.0 Lymphedema, not elsewhere classified (principal); I73.9 Peripheral vascular disease, unspecified; M86.9 Osteomyelitis, unspecified | CPT/HCPCS: 99222 ==

== ENCOUNTER → 2023-11-21 16:52 | Outpatient (BNV) | payer SELFPAY | PROVIDERS: Admitting Provider Physician Assistant; Emergency Provider Emergency Medicine Emergency Medical Services; PCP Internal Medicine; Visit Provider Internal Medicine Cardiovascular Disease | DX: M86.9 Osteomyelitis, unspecified (principal); I73.9 Peripheral vascular disease, unspecified; I42.9 Cardiomyopathy, unspecified | CPT/HCPCS: 99223 ==